=== PATIENT | female | born 1970 | race Two or more races ===

== ENCOUNTER 2024-03-27 20:36 | Emergency (ER) | payer SELFPAY ==
[2024-03-27 20:41] VITALS: BP 164/91
[2024-03-27 21:28] VITALS: BP 138/84
[2024-03-27 21:34] VITALS: BMI 28.7
[2024-03-27 21:50] LABS: % Eosinophils 7.5 % (0-6); % Immature Granulocytes 0.3 % (0-0.5); % Lymphocytes 28.5 % (20.5-51.1); % Monocytes 7.9 % (1.7-9.3); % Neutrophils 54.8 % (42.2-75.2); Absolute Basophils 0.1 10^3/uL (0-0.2); Absolute Eosinophils 0.9 10^3/uL (0-0.7); Absolute Lymphocytes 3.5 10^3/uL (1.2-3.4); Absolute Neutrophils 6.7 10^3/uL (1.4-6.5); Hematocrit 36.1 % (37.0-47.0); Hemoglobin 12.5 g/dL (12.0-16.0); Mean Corp Hgb Conc. 34.6 g/dL (33.0-37.0); Mean Corpuscular Hgb 30.5 pg (27.0-31.0); Mean Platelet Volume 12.8 fL (7.4-10.4); Nucleated Red Blood Cells % 0 %; Platelet Count 147 10^3/uL (130-400); Red Cell Dist. Width 12.7 % (11.5-14.5); White Blood Cell Count 12.2 10^3/uL (4.8-10.8)
[2024-03-27 21:58] LABS: COVID-19 Antigen Negative (Negative)
[2024-03-27 22:00] VITALS: BP 144/81
[2024-03-27 22:03] LABS: Urine Albumin Negative (Neg - Trace); Urine Bilirubin Negative (Negative); Urine Character Clear (Clear); Urine Color Yellow; Urine Glucose Negative (Negative); Urine Ketone Negative (Negative); Urine Leukocyte Trace (Negative); Urine Nitrite Negative (Negative); Urine Occult Blood Trace (Negative); Urine Specific Gravity 1.015 (<1.030); Urine Urobilinogen Negative (Neg - 1+)
--- NOTE | 2024-03-27 22:08 | ED.GENMED ---
History of Present Illness
<Pat Maldonado NP - Last Filed: 03/27/24 22:28>
General
Chief Complaint: Abdominal Symptoms
Source: patient
Exam Limitations: none
Time Seen by Provider: 03/27/24 21:02
Nursing documentation reviewed up to this point in time: agreed with
History of Present Illness
History of Present Illness:
Patient to ED with complaint of lower abd. pain. Symptoms started today. Denies fever/chills. Reports nausea and diarrhea. No vomiting. Denies any urinary symptoms. No prior history of same. Brought to eD by family for eval. ALso notes small
amt of drainage from umbilicus.
Past History
<Pat Maldonado NP - Last Filed: 03/27/24 22:28>
Past History
ED Past Medical History: Asthma and Psychiatric (Depression)
ED Past Surgical History: Appendectomy and
Social History
Tobacco: Non-smoker
Review of Systems
<Pat Maldonado NP - Last Filed: 03/27/24 22:28>
Review of Systems
Allergies reviewed?: Yes
All Other Systems: ROS reviewed and negative except as documented in HPI and ROS
Constitutional: Reports no symptoms
EENT: Reports no symptoms
Respiratory: Reports trouble breathing
Cardiac: Reports no symptoms
ABD/GI: Reports abdominal pain, nausea and diarrhea
: Reports no symptoms
Musculoskeletal: Reports no symptoms
Skin: Reports other (reports small amt of drainage from umbilicus)
Neurological: Reports no symptoms
Psychiatric: Reports no symptoms
Phy Exam
<Pat Maldonado NP - Last Filed: 03/27/24 22:28>
General Physical Exam
General Presentation: well appearing and mild distress
General age: appears stated age
General Skin: warm and dry
General Habitus: normal
General Mental: alert
Cardiovascular Exam
Cardiovascular Exam: regular rate/rhythm and no edema
Pulmonary Exam
Pulmonary Exam: lungs clear and no respiratory distress
Gastrointestinal Exam
Gastrointestinal Exam: normal bowel sounds, soft, no organomegaly, no pulsatile mass, non distended and no cva tenderness
Palpation: left upper quadrant: No tenderness, left lower quadrant: Moderate tenderness, right upper quadrant: No tenderness and right lower quadrant: Moderate tenderness
Musculoskeletal Exam
Musculoskeletal Exam: full ROM and neuro vasc intact
Skin Exam
Skin Exam: normal color, warm/dry and no rash
Psychiatric Exam
Psychiatric Exam: normal mood/affect
Course
<Pat Maldonado NP - Last Filed: 03/27/24 22:28>
Orders/Labs/Results
Orders:
Orders
03/27/24 20:47
Electrocardiogram (*1) Urgent
Reason for Study: Abdominal Pain
EKG- Treatment ONCE
IV Insert/Care/Rem.- Treatment PRN
03/27/24 20:59
Chest [CR Chest - 2 Views ] Urgent
Comment:
Reason For Exam: breathing issues
03/27/24 21:31
Basic Metabolic Panel Urgent
COVID-19 Antigen Urgent
Source: Nasal Swab
Comment: .
Complete Blood Count/With Diff Urgent
Lipase Urgent
03/27/24 21:54
Urinalysis Reflex To Culture Urgent
Date Specimen was Collected: 03/27/24
Time Specimen was Collected: 20:47
Urine Microscopic Reflex Cult Urgent
03/27/24 22:04
0.9% Sodium Chloride 1000 ml [Nss] 1,000 ml IV BOLUS
Ondansetron Injectable [Zofran] 4 mg IV NOW STA
03/27/24 22:05
Iohexol [Omnipaque] See Protocol PO NOW STA
03/28/24 00:30
CT Abd/pel W Iv And Oral Contr Urgent
Reason For Exam: lower abd. pain
03/28/24 01:36
Ketorolac [Toradol] 30 mg IV NOW STA
Abnormal Lab Results
03/27/24 03/27/24
21:31 21:54
WBC 12.2 H 10^3/uL
(4.8-10.8)
RBC 4.10 L 10^6/uL
(4.20-5.40)
Hct 36.1 L %
(37.0-47.0)
MPV 12.8 H fL
(7.4-10.4)
Absolute Neuts (auto) 6.7 H 10^3/uL
(1.4-6.5)
Absolute Lymphs (auto) 3.5 H 10^3/uL
(1.2-3.4)
Absolute Monos (auto) 1.0 H 10^3/uL
(0.1-0.6)
Absolute Eos (auto) 0.9 H 10^3/uL
(0-0.7)
Eosinophils % 7.5 H %
(0-6)
BUN 18 H mg/dl
(7-17)
Glucose 100 H mg/dl
(70-99)
Ur Occult Blood Reflex Trace A
(Negative)
Leukocyte Esterase Rfl Trace A
(Negative)
Urine Bacteria (Reflex) Few A
(Negative)
03/27/24 21:31
03/27/24 21:31
Vital Signs
Initial and Last Documented VS:
Initial Vital Signs
Temp Pulse Resp BP Pulse Ox
99 F 88 20 164/91 100
03/27/24 20:41 03/27/24 20:41 03/27/24 20:41 03/27/24 20:41 03/27/24 20:41
Last Documented Vital Signs
Temp Pulse Resp BP Pulse Ox
99.0 F 80 18 140/89 99
03/27/24 21:28 03/28/24 01:04 03/28/24 01:04 03/28/24 01:04 03/28/24 01:04
<Gurdeep Salter, DO - Last Filed: 03/28/24 01:38>
Orders/Labs/Results
Orders:
Orders
03/27/24 20:47
Electrocardiogram (*1) Urgent
Reason for Study: Abdominal Pain
EKG- Treatment ONCE
IV Insert/Care/Rem.- Treatment PRN
03/27/24 20:59
Chest [CR Chest - 2 Views ] Urgent
Comment:
Reason For Exam: breathing issues
03/27/24 21:31
Basic Metabolic Panel Urgent
COVID-19 Antigen Urgent
Source: Nasal Swab
Comment: .
Complete Blood Count/With Diff Urgent
Lipase Urgent
03/27/24 21:54
Urinalysis Reflex To Culture Urgent
Date Specimen was Collected: 03/27/24
Time Specimen was Collected: 20:47
Urine Microscopic Reflex Cult Urgent
03/27/24 22:04
0.9% Sodium Chloride 1000 ml [Nss] 1,000 ml IV BOLUS
Ondansetron Injectable [Zofran] 4 mg IV NOW STA
03/27/24 22:05
Iohexol [Omnipaque] See Protocol PO NOW STA
03/28/24 00:30
CT Abd/pel W Iv And Oral Contr Urgent
Reason For Exam: lower abd. pain
03/28/24 01:36
Ketorolac [Toradol] 30 mg IV NOW STA
Abnormal Lab Results
03/27/24 03/27/24
21:31 21:54
WBC 12.2 H 10^3/uL
(4.8-10.8)
RBC 4.10 L 10^6/uL
(4.20-5.40)
Hct 36.1 L %
(37.0-47.0)
MPV 12.8 H fL
(7.4-10.4)
Absolute Neuts (auto) 6.7 H 10^3/uL
(1.4-6.5)
Absolute Lymphs (auto) 3.5 H 10^3/uL
(1.2-3.4)
Absolute Monos (auto) 1.0 H 10^3/uL
(0.1-0.6)
Absolute Eos (auto) 0.9 H 10^3/uL
(0-0.7)
Eosinophils % 7.5 H %
(0-6)
BUN 18 H mg/dl
(7-17)
Glucose 100 H mg/dl
(70-99)
Ur Occult Blood Reflex Trace A
(Negative)
Leukocyte Esterase Rfl Trace A
(Negative)
Urine Bacteria (Reflex) Few A
(Negative)
03/27/24 21:31
03/27/24 21:31
Vital Signs
Initial and Last Documented VS:
Initial Vital Signs
Temp Pulse Resp BP Pulse Ox
99 F 88 20 164/91 100
03/27/24 20:41 03/27/24 20:41 03/27/24 20:41 03/27/24 20:41 03/27/24 20:41
Last Documented Vital Signs
Temp Pulse Resp BP Pulse Ox
99.0 F 80 18 140/89 99
03/27/24 21:28 03/28/24 01:04 03/28/24 01:04 03/28/24 01:04 03/28/24 01:04
<Gurdeep Salter, DO - Last Filed: 03/28/24 01:38>
*Critical Care Note
Total Time (30-74mins, 75-104mins- exclusive of procedures): Not Applicable
ED Attending Note
<Pat Maldonado NP - Last Filed: 03/27/24 22:28>
-
Portions of this chart may have been created with voice recognition software.� Occasional wrong word or��sound alike� substitutions may have occurred due to the inherent limitations of voice recognition software.
<Gurdeep Salter DO - Last Filed: 03/28/24 01:38>
ED Attending Note
Patient seen and examined by attending physician: Yes
I performed the substantive portion of visit, reviewed & personally made and approve the management plan that is documented in note by myself or GRACIELA.: Yes
ED Attending Note:
Seen with [facility] COACH examined independently labs noted CAT scan noted patient appears comfortable her abdomen is soft and nontender I am unable to see any drainage from umbilicus
Discharge Plan
Departure
Patient Disposition: Home (Routine Discharge)
Date of Disposition: 03/28/24
Time of Disposition: 01:37
Patient with high blood pressure during this ER visit?: No
Condition: Good
Discharge Problem:
Nausea vomiting and diarrhea
Instructions: Nausea and Vomiting, Adult (DC)
Prescriptions:
New
dicyclomine 20 mg tablet
20 mg PO QID PRN (Reason: abdominal pain) Qty: 20 0RF
ondansetron 4 mg tablet,disintegrating
4 mg PO Q8H PRN (Reason: nausea and vomiting) Qty: 10 0RF
No Action
ondansetron [Zofran ODT] 8 MG tablet,disintegrating
8 mg PO TIDPRN PRN (Reason: vomiting) Qty: 15 0RF
lansoprazole [Prevacid] 30 MG capsule,delayed release(DR/EC)
30 mg PO HS Qty: 30 0RF
lorazepam 0.5 MG tablet
0.5 mg PO Q4HPRN PRN (Reason: anxiety) Qty: 30 0RF
escitalopram oxalate 10 MG tablet
10 mg PO DAILY Qty: 60 0RF
hydroxyzine pamoate [Vistaril] 25 MG capsule
25 mg PO BID PRN (Reason: anxiety) Qty: 20 0RF
Referrals:
Malini Lebron MD [Family Provider] -
Interventions
Interventions:
*Risk Screen - Suicide Last Done: 03/27/24 20:41
*General Assessment Last Done: 03/27/24 20:41
*Neglect/Abuse Screening Last Done: 03/27/24 20:41
ED- Fall Risk Assessment Last Done: 03/27/24 20:41
*ED COVID-19 Vaccine History Last Done: 03/27/24 20:41
CG-Npgwjp-Vessrnxcxf Assessment Last Done: 03/27/24 21:36
ED- Cardiac Assessment Last Done: 03/27/24 21:36
ED- Pulmonary Assessment Last Done: 03/27/24 21:36
Discharge Date and Time
Print Language: DOMINICAN
[2024-03-27 22:12] LABS: Urine Bacteria Few (Negative); Urine Red Blood Cell 0-2 /HPF (0-2); Urine Squamous Cell 0-2 /LPF (Few); Urine White Cell 0-2 /HPF (0-5)
[2024-03-27 22:12] LABS: Blood Urea Nitrogen 18 mg/dl (7-17); Estimated Creatinine Clearance 78 ml/min; Glucose 100 mg/dl (70-99); Sodium 142 mmol/L (135-145); eGFR > 60.00
[2024-03-27 22:13] LABS: Calcium 9.6 mg/dl (8.4-10.2); Carbon Dioxide 24 mmol/L (22-30); Chloride 107 mmol/L (98-107); Lipase 193 U/L (23-300)
[2024-03-27] MEDS: NSS 1000 IV (22:21)
[2024-03-27] MEDS: ZOFRAN 4 MG IV (22:21)
[2024-03-27] MEDS: OMNIPAQUE 50 ML PO (22:22)
[2024-03-27 23:00] VITALS: BP 116/70
[2024-03-28 01:04] VITALS: BP 140/89
[2024-03-28] MEDS: TORADOL 30 MG IV (01:42)
== END 2024-03-28 01:53 | disposition home or self-care (01) ==
LOC: EMR 20:36
PROVIDERS: Emergency Medicine; EMERGENCY PHYSICIAN Emergency Medicine; FAMILY PHYSICIAN Family Medicine
DX: R19.7 Diarrhea, unspecified (principal); R11.2 Nausea with vomiting, unspecified; R10.30 Lower abdominal pain, unspecified; R06.00 Dyspnea, unspecified; Z11.52 Encounter for screening for COVID-19; F32.A Depression, unspecified; J45.909 Unspecified asthma, uncomplicated; I10 Essential (primary) hypertension; F41.9 Anxiety disorder, unspecified; Z88.0 Allergy status to penicillin
CPT/HCPCS: 99285; 96374; 96375; 96361; 71046; 74177; 80048; 81003; 81015; 83690; 85025; 87811; 93005; Q9967

== ENCOUNTER 2025-01-12 12:24 | Inpatient (IN) | payer OTHER, SELFPAY ==
[2025-01-08] VITALS (10 sets, daily range): BP systolic 118–160; BP diastolic 60–116
--- NOTE | 2025-01-08 07:12 | ED.CVA ---
History of Present Illness
General
Chief Complaint: CVA/TIA Symptoms
Source: patient
Exam Limitations: none
Time Seen by Provider: 01/08/25 07:08
Nursing documentation reviewed up to this point in time: agreed with
Onset of Stroke Symptoms
Onset of symptoms known: No
Date of onset of symptoms: 01/08/25
Time of onset of symptoms: 06:00
Time pt last seen normal is known: Yes
Date last time pt seen normal: 01/07/25
Time last time pt seen normal: 22:30
History of Present Illness
History of Present Illness:
Patient without significant past medical history, presents to ED after waking up this morning around 6 AM secondary to fall getting out of bed due to weakness. Patient went to sleep around 10:30 PM, per family, without any difficulty. Upon medics
arrival, patient was found to have right upper extremity and right lower extremity weakness along with altered speech pattern. Patient unable to provide any further information. There is no history of previous similar episodes. Patient does not
have any significant medical history. Upon arrival, patient is found to have aforementioned weakness along with soft, slow speech pattern, unable to recognize. Prehospital stroke alert activated.
Past History
Past History
ED Past Medical History: Asthma and Psychiatric (Depression)
ED Past Surgical History: Appendectomy and
Social History
Tobacco: Non-smoker
Review of Systems
Review of Systems
Allergies reviewed?: Yes
Unable to obtain full review of systems at this time due to: due to acuity
All Other Systems: Not applicable
Phy Exam
Physical Exam
Physical Exam:
Physical Exam
General: mild distress, acutely ill. afebrile
Head: nc/at. eomi
Neck: supple. normal range of motion.
Heart: s1/s2 regular rate and rhythm
Lungs: no acute respiratory distress. clear bilaterally
Abdomen: normal bowel sounds. not tender.
Neuro: alert and oriented x 3. soft, slow speech noted. no facial droop. RUE/RLE (motor) : 07/30
Skin: no rash
Extremities: no edema. no calf tenderness.
Course
Orders/Labs/Results
Orders:
Orders
01/08/25 Breakfast
NPO
Allow oral meds: No
Allow clear liquids: No
01/08/25 07:[address]
CT BRAIN PERF STROKE ALERT Urgent
Comment:
Reason For Exam: RUE/RLE weakness with altered speech
CT HEAD STROKE ALERT W/o Cont Urgent
Comment:
Reason For Exam: RUE/RLE weakness with altered speech
CT HEAD/NECK ANG STROKE ALERT Urgent
Comment:
Reason For Exam: RUE/RLE weakness with altered speech
Cardiac Monitoring- Treatment ONCE
01/08/25 07:09
Electrocardiogram (*1) Stat
Reason for Study: Other
Other Reason for Exam: neuro symptoms
EKG- Treatment ONCE
01/08/25 07:13
NEUROLOGY CONSULT Urgent
Consulting Provider: Mary Henning
Was physician already notified: Yes
Reason for consult: RUE/RLE weakness
01/08/25 07:38
Complete Blood Count/No Diff Urgent
01/08/25 08:43
Comprehensive Metabolic Panel Urgent
PTT Urgent
Prothrombin Time Urgent
Troponin I Urgent
01/08/25 09:38
Aspirin 325 mg PO NOW STA
Clopidogrel Bisulfate [Plavix] 300 mg PO NOW STA
01/08/25 09:49
Diphenhydramine [Benadryl] 25 mg IV NOW STA
Ketorolac [Toradol] 15 mg IV NOW STA
Metoclopramide [Reglan] 10 mg IV NOW STA
01/08/25 Lunch
Cholesterol Lowering
Cholesterol Lowering: Sodium, 2 Gram
Aspirin 300 mg RECTAL NOW STA
01/08/25 10:01
Ondansetron Injectable [Zofran] 4 mg IV NOW STA
01/08/25 10:35
MR Brain Without Contrast Routine
Comment:
Reason For Exam: stroke
OK for patient to be off Cardiac Monitoring for MRI: No
Recent pill cam endoscopy?: No
01/08/25 10:37
Echo 2D MMode Color/Doppler Routine
Reason for Study: Thrombotic source for stroke-like sxs
01/08/25 10:49
CRP [C-Reactive Protein] Routine
D-Dimer Routine
ESR [Erythrocyte Sed Rate] Routine
Hemoglobin A1c [Glycohemoglobin (HgbA1c)] Routine
Lipid Profile [Cardiovascular Evaluation] Routine
Lyme Progressive Routine
Magnesium Routine
01/08/25 10:59
Speech screening from Nursing [Speech Screening from [place]] Routine
01/08/25 11:26
Add On- LAB Urgent
Tests Added?: D-Dimer
01/08/25 12:25
Admit/Transfer Patient As Directed
Co-Sign Provider:
Level of Care: Observation services
Assign to:: Telemetry
Physician / Group: Bernie Muir - [facility]
Diagnosis: possible acute CVA
Reason for Telemetry: CVA/TIA
Date to Stop Telemetry: 01/11/25
Time to Stop Telemetry: 11:00
Reason for Hospitalization: possible acute CVA
PRN Pain Medication Management As Directed
May give lesser potent ordered pain med per pt: Yes
preference::
Protocol:: Medication orders for pain may be administered in a
manner that supports deferring to patient preference
when the pt is:
- Requesting an ordered lesser potent pain medication.
Least to most potent pain medications are defined
as: acetaminophen < NSAID < tramadol < opioids
(morphine, oxycodone, hydromorphone).
- Requesting a lesser dose of the same medication IF
ORDERED.
- Requesting a less intrusive route of administration
if both routes are prescribed by the provider (PO <
IV).
01/08/25 12:27
Code Status As Directed
Resuscitation Status: Full Code
01/08/25 14:17
Acetaminophen [Tylenol] 650 mg PO Q4HPRN PRN
Bisacodyl [Dulcolax] 10 mg RECTAL [id number] PRN
Bisacodyl [Dulcolax] 10 mg RECTAL [id number] PRN
Diphenhydramine [Benadryl] 25 mg IV Q6HPRN PRN
Docusate W/Senna [Senokot-S] 1 tablet PO BIDPRN PRN
Docusate W/Senna [Senokot-S] 1 tablet PO BIDPRN PRN
Ketorolac [Toradol] 15 mg IV Q6HPRN PRN
Ondansetron Injectable [Zofran] 4 mg IV Q6HPRN PRN
Polyethylene Glycol Powder [Miralax] 17 grams PO DAILYPRN PRN
Polyethylene Glycol Powder [Miralax] 17 grams PO DAILYPRN PRN
01/08/25 14:17
NEUROLOGY CONSULT Routine
Consulting Provider: Mary Henning
Was physician already notified: Yes
Urine Drug Abuse Screen Routine
Activity As Directed
Activity Level: As Tolerated
Neurological Checks As Directed
Frequency: q4h
Vital Signs As Directed
Frequency: Per unit guidelines
Ot Eval And Treat Routine
Pt Eval And Treat Routine
Activity Level: As Tolerated
Speech Therapy Eval & Treat Routine
DX Deep Vein Thrombosis Video Routine
01/08/25 18:00
Atorvastatin [Lipitor] 40 mg PO QPM
Enoxaparin Sodium [Lovenox] 40 mg SC QPM
01/09/25 06:00
Basic Metabolic Panel IN AM
Complete Blood Count/No Diff IN AM
01/09/25 08:00
Aspirin Chewable [Low Strength Aspirin] 81 mg PO DAILY
01/11/25 11:00
DC Protocol for Telemetry ONCE
Abnormal Lab Results
01/08/25 01/08/25 01/08/25
07:38 08:43 10:49
MPV 12.1 H fL
(7.4-10.4)
Chloride 113 H mmol/L
(98-107)
Glucose 102 H mg/dl
(70-99)
Total Cholesterol 239 H mg/dl
(50-199)
01/08/25 07:38
01/08/25 08:43
Vital Signs
Initial and Last Documented VS:
Initial Vital Signs
Temp Pulse Resp BP
98.2 F 94 16 150/60
01/08/25 07:28 01/08/25 07:28 01/08/25 07:28 01/08/25 07:28
Last Documented Vital Signs
Temp Pulse Resp BP Pulse Ox
98.1 F 67 14 148/85 96
01/08/25 19:57 01/08/25 19:57 01/08/25 19:57 01/08/25 19:57 01/08/25 19:57
Procedures
Central Line
Right Femoral:
Indication for procedure:: Unable to obtain peripheral IV access for potential therapeutic interventio
Procedure completed by: Niko Dye M.D.
If no, reason: Emergency procedure (Verbal consent obtained at bedside, in the presence of nursing staff and family members)
Anesthesia: 1% Lidocaine
Central line lumen: triple
Number of attempts: 1
Central line complications: none
Sterile dressing applied?: Yes
X-ray: other (Normal blood return)
MDM/Problems Addressed
MDM/Problems Addressed:
Prehospital stroke alert activated. On-call neurologist, Dr. Henning, notified via [place] text.
History and exam concerning for likely wake-up CVA, with last well-known time at 10:30 PM when she laid down to sleep. Initial CT head without any acute findings.
Unfortunately, CTA/CTP unable to be obtained initially, secondary to inability to obtain peripheral IV access after multiple attempts, including midline placement by IV team. As such, patient brought back to her room and had discussion with patient
and family regarding placement of emergent femoral central line to obtain further studies. Unfortunately, initially, there was much disagreement and refusal to provide permission to obtain central line. After multiple discussions with patient and
family, patient finally relented and agreed to allow placement of central line. Verbal consent obtained with multiple nursing staff and family at bedside.
Femoral central line placement successful after 1 attempt. Patient will be transferred back to CT for CTP/CTA studies now.
Discussed CT PE/CTA results with on-call neurologist, . Patient is not a candidate for tenecteplase at this time. Recommend starting patient on aspirin Plavix load with 300 mg. Patient will be admitted for further evaluation and
treatment.
Critical care statement: A total of 40 minutes of critical care time was provided for this patient. This includes management of unstable vital signs, evaluation of the patient at bedside, reviewing the patient's pertinent medical records, discussion
with consultants, review of old EKGs and review of pertinent medical records. This time with separate from time utilized to perform the aforementioned documented procedures
*Pulse Oximetry
Patient hypoxic: no (100%)
*EKG
Interpreted by ED Provider?: Yes
EKG Intrepretation Date: 01/08/25
Heart Rate: 77
Rate: normal
Rhythm: sinus
[place]: normal axis
Interval: normal interval
*Critical Care Note
Total Time (30-74mins, 75-104mins- exclusive of procedures): 40 min
ED Attending Note
-
Portions of this chart may have been created with voice recognition software.� Occasional wrong word or��sound alike� substitutions may have occurred due to the inherent limitations of voice recognition software.
Discharge Plan
Departure
Patient Disposition: Admit
Date of Disposition: 01/08/25
Time of Disposition: 09:42
Admit to: Telemetry
Presentation/result/management discussed w/ accepting MD/DO: Hospitalist
Discharge Problem:
Acute CVA (cerebrovascular accident)
Interventions
Interventions:
*Risk Screen - Suicide Last Done: 01/08/25 07:28
*General Assessment Last Done: 01/08/25 07:28
*Neglect/Abuse Screening Last Done: 01/08/25 08:50
*ED COVID-19 Vaccine History Last Done: 01/08/25 14:45
*Nursing Disposition Last Done: 01/08/25 14:10
ED- Pulmonary Assessment Last Done: 01/08/25 07:47
ED- Neurological Assessment Last Done: 01/08/25 11:01
ED- Cardiac Assessment Last Done: 01/08/25 07:47
ED Swallowing Screen Last Done: 01/08/25 08:50
Discharge Date and Time
Discharge Date/Time: 01/08/25 14:11
[2025-01-08 07:51] LABS: Hematocrit 43.1 % (37.0-47.0); Hemoglobin 14.6 g/dL (12.0-16.0); Mean Corp Hgb Conc. 33.9 g/dL (33.0-37.0); Mean Corpuscular Hgb 30.4 pg (27.0-31.0); Mean Corpuscular Volume 89.6 fL (81.0-99.0); Mean Platelet Volume 12.1 fL (7.4-10.4); Platelet Count 141 10^3/uL (130-400); Red Blood Cell Count 4.81 10^6/uL (4.20-5.40); Red Cell Dist. Width 12.9 % (11.5-14.5); White Blood Cell Count 9.7 10^3/uL (4.8-10.8)
--- NOTE | 2025-01-08 08:22 | VATNOTE ---
Pt required to have [address] study. 18 G was attempted in L AC area by this RN, unable to thread the catheter. U/S guided 18 was placed in R AC by physician. While pt was on the table the IV infiltrated and was unable to be used for study.
L midline was placed without difficulty and with a blood return. Dressing placed but when signals collection technician went to flush midline no blood return was appreciated. This VAT RN manipulated pt's arm and midline itself, but no blood return. Upon D/C catheter was
possibly curling upon insertion. Decision was made to remove midline and place central line. Will continue to monitor.
[2025-01-08 09:06] LABS: INR 1.05
[2025-01-08 09:07] LABS: APTT 28.5 Sec (23.4-35.0)
[2025-01-08 09:27] LABS: ALT (SGPT) 15 U/L (0-35); AST (SGOT) 19 U/L (14-36); Albumin 4.3 g/dl (3.5-5.0); Alkaline Phosphatase 72 U/L (38-126); Blood Urea Nitrogen 12 mg/dl (7-17); Calcium 9.4 mg/dl (8.4-10.2); Carbon Dioxide 22 mmol/L (22-30); Chloride 113 mmol/L (98-107); Estimated Creatinine Clearance 79 ml/min; Glucose 102 mg/dl (70-99); Potassium 4.4 mmol/L (3.5-5.1); Sodium 143 mmol/L (135-145); Total Protein 6.8 g/dl (6.3-8.2); eGFR > 60.00
[2025-01-08 09:32] LABS: Troponin I < 0.012 ng/ml
[2025-01-08] MEDS: BENADRYL 25 MG IV ×2 (10:05→21:14)
[2025-01-08] MEDS: REGLAN 10 MG IV (10:05)
[2025-01-08] MEDS: TORADOL 15 MG IV ×2 (10:05→19:46)
[2025-01-08] MEDS: ZOFRAN 4 MG IV (10:06)
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
[2025-01-08 11:33] LABS: HDL Cholesterol 59 mg/dl; LDL Cholesterol, Calculated 159 mg/dl; Total Cholesterol 239 mg/dl (50-199); Triglyceride 108 mg/dl (10-149); Very Low Density Lipoprotein 21 mg/dl (0-30)
[2025-01-08 11:35] LABS: C-Reactive Protein < 5.00 mg/L (0.0-10.00)
[2025-01-08 11:58] LABS: D-Dimer 0.38 ug/mlFEU (0.00-0.50)
--- NOTE | 2025-01-08 12:08 | HPS.HSE ---
Family Physician
-
Family Physician: Priscilla Mullen NP
Chief Complaint
-
Stroke like symptoms
History of Present Illness
54 y/o M, hx of HTN, HLD, MDD/PTSD presents to ER with headache, fall and weakness/numbness of right side. She reports initially headache started Wednesday, increase in intensity to 7/10. She went to sleep last evening at 1030 pm in her usual state
of health. this morning at 5 AM, she woke up with sudden onset Right leg numbness and weakness, which progressed to RUE numbness/weakness. She suffered a fall. No prior episodes. No other complaints. In ER, emergent stroke alert did not reveal
evidence of CVA. Patient admitted for further evaluation.
Medical History
Past Medical History
Past Medical History: Reports Other (hx of HTN, HLD, MDD/PTSD)
Past Surgical History: Reports Other (, appendectomy, Breast biopsy )
Social History
Tobacco: Non-smoker
Alcohol: None
Drug: None
Personal:
Living: With Family
Employment: Employed
Family History
Family History: Not pertinent
Allergies / Home Medications
Allergies reflects when Allergies were last updated in [employer].
Home Medications with original date entered in [employer]
Allergy/Medication List:
Allergies
Allergy/AdvReac Type Severity Reaction Status Date / Time
Penicillins Allergy Nausea / Verified 03/27/24 20:41
Vomiting
Home Medications
acetaminophen 500 mg tablet 1,000 mg PO Q6HPRN PRN mild pain 01/08/25
Review of Systems
-
A 12 point ROS was completed and negative except as noted: Yes
Physical Exam
Vital Signs
Vital Signs
Temp Pulse Resp BP Pulse Ox
98.2 F 86 23 118/72 99
01/08/25 07:28 01/08/25 11:00 01/08/25 11:00 01/08/25 11:00 01/08/25 10:15
Physical Exam
General: No Apparent Distress
HEENT: NormoCephalic and Anicteric
Respiratory: Clear; No Wheezes
Cardiac: S1/S2 and Regular Rhythm
GI: Soft and Non Tender
Neuro: AO x 3 and Other (Right pronator drift (pain limited exam). Bilateral leg drift (right >left))
Psych: Calm
Laboratory Results
-
01/08/25 07:38
01/08/25 08:43
Laboratory Results
PT 14.0 Sec (11.4-14.6) 01/08/25 08:43
INR 1.05 01/08/25 08:43
APTT 28.5 Sec (23.4-35.0) 01/08/25 08:43
Total Bilirubin 1.0 mg/dl (0.2-1.3) 01/08/25 08:43
AST 19 U/L (14-36) 01/08/25 08:43
ALT 15 U/L (0-35) 01/08/25 08:43
Alkaline Phosphatase 72 U/L (38-126) 01/08/25 08:43
Troponin I < 0.012 ng/ml 01/08/25 08:43
Data Reviewed
-
Lab Data: Labs Reviewed by me
Impression/Plan
-
Assessment:
Left lacunar syndrome with hemiparesis/sensory deficits
- Ddx: CVA vs HTN related vs migraine related vs psychosomatic etiology
- CTH/CTA/CTP negative in ER. MRI pending.
- Echo pending
- Neurology consulted; start ASA/Plavix/Statin
- Lipids/A1c/Tox screen/ESR/CRP
- headache control prn Reglan/Benadryl
- Psych evaluation if workup negative
- PT/OT/ST evals
Essential HTN
- may need BP agent if BP>140/90
HLD
- Lipitor
MDD/PTSD
DVT ppx: Lovenox
Code: Full
[2025-01-08 13:40] LABS: Erythrocyte Sed Rate 9 mm/hour (0-20)
[2025-01-08 14:02] LABS: Glycohemoglobin (HgbA1c) 5.4 % (4.0-5.6)
--- NOTE | 2025-01-08 16:06 | PTOTSP ---
Dysphagia Evaluation
Patient/family reported signs concerning for unspecified pharyngeal and/or esophageal dysphagia (i.e., 'coughing/choking' at onset of meals for several months prior to admission, need for pats to back). Patient currently presents with significant
odynophagia with limited trials of thin liquids via straw, c/o stasis resolved w/ time, but no overt s/s of aspiration.
Etiology of dysphagia is unknown. Notified neurologist of recent dysphagia reports. Acute dysphagia risk factors include current reports of decreased sensation on right side of face with MRI of Brain pending to r/o CVA.
Recommend:
1. NPO
2. Medications: non-oral
3. Oral care 3x daily
4. Aspiration Risk Hydration Protocol - unlimited SINGLE sips of thin liquid water
5. Dysphagia therapy for re-evaluation of swallowing and to determine if/when instrumental swallowing assessment warranted
[2025-01-08] MEDS: PROTONIX IV 40 MG IV (16:07)
[2025-01-08] MEDS: NSS 1000 IV (16:07)
[2025-01-08] MEDS: NSS (PRESERVATIVE FREE) 10 ML IV (16:07)
--- NOTE | 2025-01-08 16:37 | VATNOTE ---
Spoke with MD about pt's peripheral access, pt has residual weakness in her RUE so limb restriction bracelet applied. New PIV established in L arm and R hand IV discontinued. Clarifying with MD if we can DC femoral line with current access.
--- NOTE | 2025-01-08 16:41 | VATNOTE ---
Per , OK to remove femoral line with current PIV access.
[2025-01-08] MEDS: LOVENOX 40 MG SC (17:08)
[2025-01-08] MEDS: LIPITOR PO (17:08)
[2025-01-08 21:23] LABS: Glucose - Point of Care 85 mg/dl (70-99)
[2025-01-08 21:40] LABS: Amphetamines Negative (Negative); Barbiturates Negative (Negative); Benzodiazepines Negative (Negative); Buprenorphine Negative (Negative); Cocaine Negative (Negative); Marijuana Negative (Negative); Methadone Negative (Negative); Methamphetamines Negative (Negative); Opiates Negative (Negative); Phencyclidine Negative (Negative); Tricyclic Antidepressants Negative (Negative)
[2025-01-09] VITALS (8 sets, daily range): BP systolic 117–151; BP diastolic 60–83; PULSE 77; O2SAT 100
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
[2025-01-09] MEDS: LOW STRENGTH ASPIRIN PO (07:59)
[2025-01-09] MEDS: PROTONIX IV 40 MG IV (08:00)
[2025-01-09] MEDS: NSS (PRESERVATIVE FREE) 10 ML IV (08:00)
[2025-01-09 08:01] LABS: Hematocrit 36.9 % (37.0-47.0); Hemoglobin 12.5 g/dL (12.0-16.0); Mean Corp Hgb Conc. 33.9 g/dL (33.0-37.0); Mean Corpuscular Hgb 30.4 pg (27.0-31.0); Mean Corpuscular Volume 89.8 fL (81.0-99.0); Mean Platelet Volume 12.2 fL (7.4-10.4); Platelet Count 145 10^3/uL (130-400); Red Blood Cell Count 4.11 10^6/uL (4.20-5.40); Red Cell Dist. Width 13.1 % (11.5-14.5); White Blood Cell Count 7.3 10^3/uL (4.8-10.8)
[2025-01-09] MEDS: TORADOL 15 MG IV (08:07)
--- NOTE | 2025-01-09 08:10 | VATNOTE ---
During routine assessment, dressing where R femoral line was removed visualized. Dressing is clean, dry, and intact. Pt describes a 'litte soreness' at the site.
[2025-01-09 08:20] LABS: Blood Urea Nitrogen 13 mg/dl (7-17); Carbon Dioxide 22 mmol/L (22-30); Chloride 115 mmol/L (98-107); Estimated Creatinine Clearance 70 ml/min; Glucose 81 mg/dl (70-99); Potassium 4.2 mmol/L (3.5-5.1); Sodium 143 mmol/L (135-145); eGFR > 60.00
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
--- NOTE | 2025-01-09 13:48 | W.PN.HOSP.TC ---
Today's Communication/Plan
-
acute rehab eval
Assessment / Plan
Assessment / Plan
Assessment:
Left lacunar syndrome with hemiparesis/sensory deficits
- CTH/CTA/CTP negative in ER. MRI negative. Echo unremarkable
- await CT C spine
- OP NCS/EMG if symptoms persist
- probably component of conversion disorder (functional neurological symptom disorder); reviewed with psychiatry
- continue ASA/Statin
- headache control prn Reglan/Benadryl
- PT/OT - acute rehab recommended. consult placed.
R elbow pain
- Xray ordered
Lumbar back pain
- Xray ordered
Essential HTN
- may need BP agent if BP>140/90
HLD
- Lipitor
MDD/PTSD
DVT ppx: Lovenox
Code: Full
Anticipated Discharge: > 48 hours
Subjective/Interval History
-
Date of Service: January 09, 2025
moving RUE and RLE slightly better than yesterday, still remains weak
tearful over psychosocial stressors
Objective Data
-
Labs:
Laboratory Results
01/09/25
07:17
WBC 7.3
Hgb 12.5
Hct 36.9 L
Plt Count 145
Sodium 143
Potassium 4.2
Chloride 115 H
Carbon Dioxide 22
BUN 13
Creatinine 0.9
Glucose 81
Calcium 9.0
Vital Signs:
Vital Signs
Temp Pulse Resp BP Pulse Ox
98.5 F 63 12 127/72 97
01/09/25 11:05 01/09/25 11:05 01/09/25 11:05 01/09/25 11:05 01/09/25 11:05
I&O
0601/09/25 01/10/25
06:59 06:59 06:59
Intake Total 800 / 800
Output Total 400 / 400
Balance 400 / 400
Physical Exam
-
General: No Apparent Distress
HEENT: Normocephalic and Atraumatic
Respiratory: Negative Wheezes
Cardiac: Regular Rhythm and S1/S2
GI: Soft and Nontender
Musculoskeletal: No Edema
Neuro: AO x 3 and Other (Right pronator drift (pain limited exam). Bilateral leg drift (right >left). Left arm and leg-antigravity)
Psych: Calm
Data Reviewed
-
Total Time Spent with Patient (in minutes): 42
Labs: Labs Reviewed by me
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
[2025-01-09] MEDS: LOVENOX 40 MG SC (17:22)
[2025-01-09] MEDS: LIPITOR 40 MG PO (17:22)
[2025-01-09] MEDS: BENADRYL 25 MG IV (21:56)
[2025-01-10] VITALS (8 sets, daily range): BP systolic 131–178; BP diastolic 60–99; PULSE 75–77; O2SAT 99
--- NOTE | 2025-01-10 04:48 | DOWNTIME ---
Addendum entered by Rudy Panda RN 01/10/25 14:11:
Correction to downtime 01/10/2025 from 0100 to 01/10/25 at 0415.
Original Note:
There was a [employer] Downtime on 01/09/2025 from 0100 to 01/10/2025 at 0415. Downtime documentation of patient's care, including medication administrations, has been reconciled in the electronic record per guidelines. Refer to the
patient's paper chart under the miscellaneous tab to see printed paper medication records and downtime forms.
[2025-01-10 06:34] LABS: Blood Urea Nitrogen 16 mg/dl (7-17); Calcium 9.2 mg/dl (8.4-10.2); Carbon Dioxide 24 mmol/L (22-30); Chloride 113 mmol/L (98-107); Estimated Creatinine Clearance 70 ml/min; Glucose 92 mg/dl (70-99); Potassium 4.4 mmol/L (3.5-5.1); Sodium 142 mmol/L (135-145); eGFR > 60.00
[2025-01-10] MEDS: LOW STRENGTH ASPIRIN 81 MG PO (08:22)
[2025-01-10] MEDS: NSS (PRESERVATIVE FREE) 10 ML IV (08:23)
[2025-01-10] MEDS: PROTONIX IV 40 MG IV (08:24)
[2025-01-10] MEDS: TORADOL 15 MG IV (11:08)
--- NOTE | 2025-01-10 12:08 | W.PN.HOSP.TC ---
Today's Communication/Plan
-
Neurosx eval
PT/OT/PMR evals
Assessment / Plan
Assessment / Plan
Assessment:
Left lacunar syndrome with hemiparesis/sensory deficits
- CTH/CTA/CTP negative in ER. MRI negative. Echo unremarkable
- CT C spine results as below
- OP NCS/EMG if symptoms persist
- probably component of conversion disorder (functional neurological symptom disorder); reviewed with psychiatry
- continue ASA/Statin
- headache control prn Reglan/Benadryl
- PT/OT - acute rehab recommended. consult placed.
Neck pain
- CT as below:
- SEVERE RIGHT-SIDED FACET JOINT ARTHROSIS at C3/C4 causing severe right neural foraminal narrowing and exiting right C4 nerve root impingement.
- SEVERE DISCOGENIC DEGENERATIVE DISEASE at C6/C7 with a moderate to large central disc-osteophyte complex causing mild to moderate spinal cord compression and central canal stenosis. Moderate to severe bilateral neural foraminal narrowing at C6/C7.
- Moderate to severe discogenic degenerative disease at C5/C6 with a disc-osteophyte complex causing mild spinal cord compression, mild central canal stenosis, and moderate to severe right neural foraminal narrowing.
- Mild spinal cord compression and central canal stenosis at C3/C4 and C4/C5.
- Neurosurg evaluation requested
R elbow pain
- Xray: Acute soft tissue contusion in the posterior right elbow overlying the proximal ulna.
Lumbar back pain
- Xray: Moderate discogenic degenerative disease at L4/L5 and L5/S1. Moderate to severe bilateral facet joint arthrosis at L4/L5 and L5/S1
Essential HTN
- may need BP agent if BP>140/90
HLD
- Lipitor
MDD/PTSD
DVT ppx: Lovenox
Code: Full
Anticipated Discharge: > 48 hours
Subjective/Interval History
-
Date of Service: January 10, 2025
resting comfortably, family at bedside
Objective Data
-
Labs:
Laboratory Results
01/10/25
05:49
WBC Pending
Hgb Pending
Hct Pending
Plt Count Pending
Sodium 142
Potassium 4.4
Chloride 113 H
Carbon Dioxide 24
BUN 16
Creatinine 0.9
Glucose 92
Calcium 9.2
Vital Signs:
Vital Signs
Temp Pulse Resp BP Pulse Ox
98.3 F 68 17 137/74 100
01/10/25 11:04 01/10/25 11:04 01/10/25 11:04 01/10/25 11:04 01/10/25 11:04
I&O
01/09/25 01/10/25 01/11/25
06:59 06:59 06:59
Intake Total 800 / 800 500 / 500
Output Total 400 / 400
Balance 400 / 400 500 / 500
Physical Exam
-
General: No Apparent Distress
HEENT: Normocephalic and Atraumatic
Respiratory: Negative Wheezes
Cardiac: Regular Rhythm and S1/S2
GI: Soft and Nontender
Musculoskeletal: No Edema
Neuro: AO x 3
Psych: Calm
Data Reviewed
-
Total Time Spent with Patient (in minutes): 41
Labs: Labs Reviewed by me
--- NOTE | 2025-01-10 13:29 | W.PN.UPDATE ---
Update Note
Progress Note Update
patient seen chart reviewed. discussed with nursing and dr dan. noted results of spine imaging. frankly i am surpised patient is not in more pain given the level of musculoskeletal disease in her back. the patient was very forthcoming about her
psychic pain. she lives in a very traditional household where the woman is subservient to her and it seems to just about everyone else. she is feeling particulary burdened with her d's inlaws in the home and she is expected to do it all
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 as well the rules have changed for her in her own interaction with her kids...whereas in the past when and where she was raised what parent said was the law...but not at this point where she feels she always has to walk
on eggshells around her own kids. she was at 15 and had her first child at 16. financially she sees herself as dependent upon her and that has been a most unhappy arrangement. she does not see any of their possessions as hers 'i live
in his house.' her sisters and her mother are her supports. i encouraged her to talk and gently challenged some of her assumptions. she is obviously a very capable woman who could have options if she would allow herself. she said she would be
willing to consider medication but maintains what she tried caused si. she said it was prescribed by [facility] but i got someone to review the f record and there was no record of meds prescribed just a note that she had taken meds prescribed
elsewhere and could not recall what she had taken. will discuss w her tomorrow.
--- NOTE | 2025-01-10 14:17 | CM ---
Addendum entered by Carey Gupta 01/12/25 10:44:
Patient has been accepted for transfer to [facility] for today. Clinical request for transfer sent via fax to [facility] [phone].
[facility] [place]
Accepting physician: Dr. Patel
Addendum entered by Carey Gupta 01/11/25 10:23:
[facility] is offering a bed for SNF if pt is agreeable to admission there. All other facilities are out of network with pt's insurance.
Plan: CM to discuss transfer to [facility] SNF for short term rehab with patient.
Original Note:
Dr. Muir requesting SNF referral be sent; CM will speak with Mary Jo to see if she is agreeable to SNF admission.
Unsure if [facility] will consider for admission. left for Liz Rondon to determine possibility of [facility] admission.
CM will speak with Mary Jo to see if she is agreeable to SNF admission.
SNF referrals sent to:
[facility]
[address] [facility], [place] [address]
[facility]
[address] [place] [address]
[facility]
[address] [place] [address] Online
[facility]
[address] [place] [address]
[facility]
[address] [place] [address]
[facility]
[address], [place] [address]
[2025-01-10] MEDS: TYLENOL 650 MG PO (14:51)
[2025-01-10 15:16] LABS: Hematocrit 35.9 % (37.0-47.0); Hemoglobin 12.1 g/dL (12.0-16.0); Mean Corp Hgb Conc. 33.7 g/dL (33.0-37.0); Mean Corpuscular Hgb 30.6 pg (27.0-31.0); Mean Corpuscular Volume 90.7 fL (81.0-99.0); Platelet Count 151 10^3/uL (130-400); Red Blood Cell Count 3.96 10^6/uL (4.20-5.40); Red Cell Dist. Width 12.8 % (11.5-14.5); White Blood Cell Count 7.2 10^3/uL (4.8-10.8)
--- NOTE | 2025-01-10 17:10 | CON.MD ---
Consultation - Medical
-
Referring Provider:�
Chief Complaint:�CVA
�
History of Present Illness:�54 y/o M, hx of HTN, HLD, MDD/PTSD presents to ER with headache, fall and weakness/numbness of right side. She reports initially headache started Wednesday, increase in intensity to /. She went to sleep last evening at
1030 pm in her usual state of health. this morning at 5 AM, she woke up with sudden onset Right leg numbness and weakness, which progressed to RUE numbness/weakness. She suffered a fall. No prior episodes. No other complaints. In ER, emergent stroke
alert did not reveal evidence of CVA. Patient admitted for further evaluation.
MRI of Brain - 01/08- No abnormal parenchymal signal intensity, mass effect, midline shift, or extra-axial collection. No hydrocephalus. No abnormal signal on diffusion imaging to suggest acute infarct. No acute intracranial abnormality noted.
Head/Neck CTA: Slightly limited by motion artifacts as above. No major branch vessel occlusion, flow-limiting stenosis, dissection, or aneurysm formation identified.
CT Scan- 01/08- No acute intracranial abnormality noted.
Seen by neurology- differential diagnoses with Migraine Aura, Left lacunar syndrome with hemiparesis/sensory deficits, probably component of conversion disorder -seen by psychiatry.
CT of the cervical spine performed on 01/09/2025 Multilevel degenerative disc disease, as well as cervical spondylotic changes, most evident at C5-C6, C6-C7. No obvious evidence of spinal canal impingement is seen. Right sided C3-C4 facet
arthropathy is noted laterally.
Seen by neurosurgery who is in agreement with neurology recommendation of EMG OP, PT/OT- No acute neurosurgical intervention recommended at present time in the hospital. May consider MRI of the neck OP if fails conservative measures and see OP pain
management/pain intervention.
Past Medical History:�HTN, HLD, MDD/PTSD, Migraine headache
Procedure History:�, appendectomy, Breast biopsy
Family History:�Father- stroke
�
Social History:�
Functional Level Premorbidly:�Independent with all activities�
Functional Level Currently:�Eating�set up, toileting�mod assist, toilet transfer�mod assist, bed mobility�supervision-min assist, transfer�min assist, ambulation 8 feet time 1, bathroom. 16 feet time 1 with rolling walker and min assist, second
person for safety
�
Tobacco:�Denies�
Alcohol:�Denies�
Drug use:�Denies�
�
Lives with:�Family
24-hour assistance available:�
Number of floors:�2
# steps to enter:�2
# steps to second floor:
Potential First floor set up:�
Driving:�yes
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
�
�
Allergies:�
Allergy/AdvReac Type Severity Reaction Status Date / Time
Penicillins Allergy Nausea / Verified 03/27/24 20:41
Vomiting
�
Review of Systems:�
Constitutional: (x) Normal _
Eye: (x) Normal _
Ear/Nose/Throat: (x) Normal _
Respiratory: (x) Normal _
Cardiovascular: (x) Normal _
Gastrointestinal: (x) Normal _
Genitourinary: (x) Normal _
Musculoskeletal: (x) abNormal _right sided weakness, tingling
Integumentary: (x) Normal _
Neurologic: (x) abNormal headache, migraine_
Psychiatric: (x) abNormal _MDD, borderline personality disorder
Endocrine: (x) Normal _
Hematologic/Lymphatic: (x) Normal _
Allergic/Immunologic: (x) Normal _
�
Medications:�
Active Current Visit Medication List
Category Date Time Status
0.9% Sodium Chloride [Nss (Preservative Free)] Med 01/09/25 08:00 Active
10 ml IV DAILY
Acetaminophen [Tylenol] Med 01/08/25 14:17 Active
650 mg PO Q4HPRN PRN
Aspirin Chewable [Low Strength Aspirin] Med 01/09/25 08:00 Active
81 mg PO DAILY
Atorvastatin [Lipitor] Med 01/08/25 18:00 Active
40 mg PO QPM
Bisacodyl [Dulcolax] Med 01/08/25 14:17 Active
10 mg RECTAL [id number] PRN
Diphenhydramine [Benadryl] Med 01/08/25 14:17 Active
25 mg IV Q6HPRN PRN
Docusate W/Senna [Senokot-S] Med 01/08/25 14:17 Active
1 tablet PO BIDPRN PRN
Enoxaparin Sodium [Lovenox] Med 01/08/25 18:00 Active
40 mg SC QPM
Ketorolac [Toradol] Med 01/08/25 14:17 Active
15 mg IV Q6HPRN PRN
Ondansetron Injectable [Zofran] Med 01/08/25 14:17 Active
4 mg IV Q6HPRN PRN
Pantoprazole [Protonix IV] Med 01/09/25 08:00 Active
40 mg IV DAILY
Polyethylene Glycol Powder [Miralax] Med 01/08/25 14:17 Active
17 grams PO DAILYPRN PRN
�
Vitals:�
Temp Pulse Resp BP Pulse Ox
98.9 F 70 18 131/79 98
01/10/25 15:00 01/10/25 15:00 01/10/25 15:00 01/10/25 15:00 01/10/25 15:54
Height 5 ft 3 in
Actual Weight 76.685 kg
Body Mass Index (BMI) 30.0
�
Physical Exam:�
General Appearance/Observation: Well-developed, well-nourished individual in no apparent distress.�Lying in bed
Pain/Comfort Assessment: RUE, elbow�
Mood/Affect: Appropriate�
�
Integumentary/Operative Site:�
�� Pressure Ulcer Evaluation: absent over heels.�
��
�� Other Type of Wound: absent�
��
Eyes: Conjunctiva/Lids: normal���� Pupils: pupils equal round and reactive to light and Accommodation�
Ears/Nose/Throat: oral mucosa moist,� throat clear.������������ Lips/Teeth/Gums: normal�
Neck: No muscle spasm or tenderness�
Cardiovascular: Heart: regular, no murmur�
Pulses: dorsalis pedis 2+ bilaterally�
Respiratory: Respiratory Effort/Chest Expansion: normal������� Auscultation: Clear to auscultation bilaterally�
Gastrointestinal: abdomen not tender, no distension, normal abdominal bowel sounds
Genitourinary: No Fleming�
Extremities:�Edema: None�Cyanosis: None�Trophic�changes: None
�
Neurology Exam:
Orientation: Alert, Oriented to self, Time, Place�
Memory: Intact for immediate medical concerns
Comprehension: Intact
Two step command: Intact
Naming: Intact
Cranial Nerves:
�� CNII:�Pupillary light reflex: Intact����Visual Field: Intact
�� CN III, IV, : Extraocular muscles: Intact�
�� CN V:�Facial Sensation�at�Forehead: Intact,�Maxilla: Intact,�Mandible: Intact
�� CN VII:�Facial movement: Symmetric
�� CN VIII:�Hearing: Normal
�� CN IX/X:�Speech & swallow: Normal,�Position of Uvula: Midline
�� CN XI:�Shoulder shrug: Symmetric
�� CN XII:�Tongue protrusion: Midline
Sensory:
�� Light touch: Intact in bilateral upper and lower extremities
�
Reflexes
�� Biceps: trace bilaterally
�� Brachioradialis: trace bilaterally
�� Triceps: trace bilaterally
�� Patellar: 2+ bilaterally
�� Achilles: absent bilaterally
�� Babinski: No response on right, Down going on left
�� Clonus: None
�� Camilla: Negative bilaterally�
Cerebellar: Dysmetria/Ataxia: None�
Musculoskeletal:
Motor: (Manual muscle scale 0-5)�
Muscle SA EF WE EE FF FA HF KE DF EHL PF
Right� 3+ 3+ 3+ 3 3+ 3 3+ 3+ 3+ 3+ 3+
Left 4 4 5 4 4 4 5 5 5 5 5
�
Tone: Normal in all extremities�
Range of Motion: Passively within normal limits . Right elbow pain with rom.
�
Lab Results:
Labs
WBC 7.2 10^3/uL (4.8-10.8) 01/10/25 05:49
RBC 3.96 10^6/uL (4.20-5.40) L 01/10/25 05:49
Hgb 12.1 g/dL (12.0-16.0) 01/10/25 05:49
Hct 35.9 % (37.0-47.0) L 01/10/25 05:49
MCV 90.7 fL (81.0-99.0) 01/10/25 05:49
MCH 30.6 pg (27.0-31.0) 01/10/25 05:49
MCHC 33.7 g/dL (33.0-37.0) 01/10/25 05:49
RDW 12.8 % (11.5-14.5) 01/10/25 05:49
Plt Count 151 10^3/uL (130-400) 01/10/25 05:49
MPV 13.0 fL (7.4-10.4) H 01/10/25 05:49
ESR 9 mm/hour (0-20) 01/08/25 10:49
PT 14.0 Sec (11.4-14.6) 01/08/25 08:43
INR 1.05 01/08/25 08:43
APTT 28.5 Sec (23.4-35.0) 01/08/25 08:43
D-Dimer 0.38 ug/mlFEU (0.00-0.50) 01/08/25 10:49
Sodium 142 mmol/L (135-145) 01/10/25 05:49
Potassium 4.4 mmol/L (3.5-5.1) 01/10/25 05:49
Chloride 113 mmol/L (98-107) H 01/10/25 05:49
Carbon Dioxide 24 mmol/L (22-30) 01/10/25 05:49
BUN 16 mg/dl (7-17) 01/10/25 05:49
Creatinine 0.9 mg/dL (0.6-1.0) 01/10/25 05:49
Estimated Creat Clear 70 ml/min 01/10/25 05:49
eGFR > 60.00 01/10/25 05:49
Glucose 92 mg/dl (70-99) 01/10/25 05:49
Hemoglobin A1c 5.4 % (4.0-5.6) 01/08/25 10:49
Calcium 9.2 mg/dl (8.4-10.2) 01/10/25 05:49
Magnesium 2.0 mg/dl (1.6-2.3) 01/08/25 10:49
Total Bilirubin 1.0 mg/dl (0.2-1.3) 01/08/25 08:43
AST 19 U/L (14-36) 01/08/25 08:43
ALT 15 U/L (0-35) 01/08/25 08:43
Alkaline Phosphatase 72 U/L (38-126) 01/08/25 08:43
Troponin I < 0.012 ng/ml 01/08/25 08:43
C-Reactive Protein < 5.00 mg/L (0.0-10.00) 01/08/25 10:49
Total Protein 6.8 g/dl (6.3-8.2) 01/08/25 08:43
Albumin 4.3 g/dl (3.5-5.0) 01/08/25 08:43
Triglycerides 108 mg/dl (10-149) 01/08/25 10:49
Total Cholesterol 239 mg/dl (50-199) H 01/08/25 10:49
LDL Cholesterol, Calc 159 mg/dl 01/08/25 10:49
VLDL Cholesterol, Calc 21 mg/dl (0-30) 01/08/25 10:49
HDL Cholesterol 59 mg/dl 01/08/25 10:49
Urine Opiates Screen Negative (Negative) 01/08/25 21:16
Ur Buprenorphine Negative (Negative) 01/08/25 21:16
Ur Oxycodone Screen Negative (Negative) 01/08/25 21:16
Urine Methadone Screen Negative (Negative) 01/08/25 21:16
Ur Barbiturates Screen Negative (Negative) 01/08/25 21:16
Ur Tricyclics Screen Negative (Negative) 01/08/25 21:16
Ur Phencyclidine Scrn Negative (Negative) 01/08/25 21:16
Ur Amphetamines Screen Negative (Negative) 01/08/25 21:16
U Methamphetamines Scrn Negative (Negative) 01/08/25 21:16
U Benzodiazepines Scrn Negative (Negative) 01/08/25 21:16
Urine Cocaine Screen Negative (Negative) 01/08/25 21:16
U Marijuana (THC) Screen Negative (Negative) 01/08/25 21:16
POC Glucose 85 mg/dl (70-99) 01/08/25 21:22
�
Diagnostic Results:�as per HPI�
�
Assessment: 54 year female with right side upper and lower extremities weakness with cervical spondylosis affecting ADL and ambulation.
�
Plan�
PM&R�PT/OT to increase independence with ADLs, improve balance, coordination, endurance, strength, mobility, community reintegration, decreased burden of care on others and family education.�
right dominant hemiparesis: No cva on images.No carotid stenosis. Weakness may be associated with Continue aspirin. High risk for falls and sliding out of chair/bed. Safety reinforced.�
- Avoid using affected arm to help lift or pull patient as this will cause trauma to the shoulder.
Cervical Spondylosis: No neurosurgical intervention. OP NCS/EMG. Pain management if conservative measures fail
HLD: Statin�
Migraines: Toradol, minimize ibuprofen use
Psych/PTSD/MDD: seen by psych. � Monitor mood, adjust medications as needed.�
Skin: monitor for pressure sores/rashes/lesions.�
Pain: acetaminophen as needed.�
Bowel: Colace and Senna, PRN bisacodyl.�
Bladder: Time void, PVRs, PRN straight cath.�
GI Prophylaxis: Pantoprazole�40mg qd
DVT Prophylaxis:�Lovenox
Pulmonary: Incentive spirometry�
Safety: Continue to reinforce assistance with all transfers.�
Code Status:� Full code
Dispo�(date/plan/equipment needs): Home with family care.� Social history reviewed.�
�
Functional and Medical Goals:�Modified Independent with ADL�s, ambulation, transfers�
�
Discharge Destination:� Patient with right side weakness of upper and lower extremity with spondylosis on cervical and lumbar images that is affecting ADLs and ambulation would benefit from acute inpatient rehabilitation for PT/OT to increase
independence with ADLs, improve endurance, strength, mobility, community reintegration, decreased burden of care on others and family education.�
�
�
Thank you for allowing me to care for your patient. Please contact me with any questions or concerns.
--- NOTE | 2025-01-10 17:53 | CON.NS ---
Consultation
-
Date/Time Consultation Performed: 01/10/2025; 18:10
Performing Provider: Connor
Chief Complaint
History of Present Illness
This is a neurosurgical consultation on a 54-year-old female with active medical issues including hypertension, hyperlipidemia, depression, PTSD, who presented on 01/08/2025 with weakness and numbness of the right side, as well as headache/fall. She
reported that the headache started several days prior and increased to intensity of 7/10. She had sudden onset of right leg numbness and weakness, which progressed to the arm. She suffered a fall. She was worked up for stroke and admitted for
further evaluation.She was seen by neurology and underwent a brain MRI which did not demonstrate any acute infarction. It was felt that she likely has probable migraine with aura. Given her upper, lower extremity symptoms, neurosurgery consulted.
Patient had a CT of the cervical spine which did demonstrate multilevel cervical spondylotic changes as well as foraminal narrowing at C3-C4, as well as discogenic disease at C6-C7. Therefore, neurosurgery was consulted.
Ultimately plan is to obtain outpatient EMG test as well as PT/OT.
Patient seen examined. Family is at bedside. Patient reports that she has had longstanding history of right-sided neck pain, and headaches. She attributed her pain to migraine-like headaches. She reports that the pain starts along the right
aspect of the head, and neck, and travels to the right shoulder. Symptoms are alleviated by taking Tylenol 3 times a day. Initially she stated the symptoms have been going on for several months, but later in the encounter, reports that 2 years
ago, she was advised by her PCP to try physical therapy for the similar symptoms.
She reports that she presented to the emergency room because as she attempted to get out of bed, she had significant weakness, and sustained a fall, due to her right leg not supporting her/giving out. She landed on her right side, and on her right
elbow. She currently denies any numbness or tingling in the extremities.
Additional history obtained from the patient's RN, who reports that she has been able to ambulate out of bed to the bathroom.
Review of Systems
-
10 point review of systems including constitutional, ENT, cardiovascular, respiratory, GI, , neurologic, musculoskeletal, hematologic, endocrinologic was performed, and was negative except for as stated in HPI.
Medication and Allergies
Home Medications
Home Medications
�Medication �Instructions �Recorded
acetaminophen 500 mg tablet 1,000 mg PO Q6HPRN PRN mild pain 01/08/25
Allergies
Allergies
Allergy/AdvReac Type Severity Reaction Status Date / Time
Penicillins Allergy Nausea / Verified 03/27/24 20:41
Vomiting
Physical Exam
-
Exam:
Awake, alert, no apparent distress. Appears mildly anxious.
Cranial nerves II through XII are grossly intact.
Motor: 5/5 strength in left upper, lower extremity in all muscle groups. At least 3+/5 in right arm, right leg diffusely, with poor effort noted.
Sensation to light touch is intact bilaterally in upper and lower extremities.
The patient demonstrates full range of motion of the neck in flexion, extension, bilateral lateral rotation.
Head is normocephalic atraumatic
Neck is supple
Breathing nonlabored
Cardiac regular rate
Abdomen is soft
Extremities are warm
CT of the cervical spine performed on 01/09/2025 was reviewed. Images reports viewed interpreted by me. Patient has multilevel degenerative disc disease, as well as cervical spondylotic changes, most evident at C5-C6, C6-C7. No obvious evidence of
spinal canal impingement is seen. Right sided C3-C4 facet arthropathy is noted laterally.
Problems
-
Problem Status Onset Code
Acute CVA (cerebrovascular accident) Acute I63.9
Assessment / Plan
-
This is a 54-year-old female who presented with headache, neck pain, and also with subsequent right upper, lower extremity symptoms.
CT of the cervical spine demonstrates cervical spondylotic changes,, degenerative in nature.
No acute neurosurgical intervention recommended at present time in the hospital.
Agree with course of pain control, physical therapy/Occupational Therapy, as well as outpatient EMG/NCV by neurology.
Can obtain MRI of the cervical spine as outpatient as well, if patient fails conservative measures including physical therapy, pain control, can then follow-up with pain management/physiatry, for interventional pain management/procedures such as HIMA.
[2025-01-10] MEDS: LOVENOX 40 MG SC (18:05)
[2025-01-10] MEDS: LIPITOR 40 MG PO (18:05)
[2025-01-11] VITALS (8 sets, daily range): BP systolic 117–154; BP diastolic 66–88; PULSE 78; O2SAT 98
[2025-01-11] MEDS: BENADRYL 25 MG IV (02:14)
[2025-01-11] MEDS: LOW STRENGTH ASPIRIN 81 MG PO (09:07)
[2025-01-11] MEDS: PROTONIX IV 40 MG IV (09:08)
[2025-01-11] MEDS: NSS (PRESERVATIVE FREE) 10 ML IV (09:08)
--- NOTE | 2025-01-11 11:24 | W.PN.UPDATE ---
Update Note
Progress Note Update
patient seen chart reviewed. goddaughter who is very much like patient's daughter was at bedside. this young woman was able to support a lot of the things mrs roque and i talked about over the past few days and offered the same intuition to her
aunt. patient has no trouble articulating her sadness at her marriage and the pain it has caused in her life but she struggles to imagine that anything could ever be different. says 'i just want everyone to be happy' but this is often at her own
expense. we talked about the issue of meds. her back films show significant musculoskeletal disease. she admits she is always in pain thought does not complain 'i have a high pain tolerance. ' suggested cymbalta for depression and pain. niece
takes it as well for her own musculoskeletal pain and depression. will start with 20 mg explained how it works side effects benefits. patient has been accepted for rehab likely in the next day or two. she does seem to be gaining in strength and
function since admit
--- NOTE | 2025-01-11 13:17 | W.PN.HOSP.TC ---
Today's Communication/Plan
-
Medically stable for dc to [facility] pending bed/auth
Assessment / Plan
Assessment / Plan
Assessment:
Left lacunar syndrome with hemiparesis/sensory deficits
- CTH/CTA/CTP negative in ER. MRI negative. Echo unremarkable
- CT C spine results as below
- OP NCS/EMG if symptoms persist
- probably component of conversion disorder (functional neurological symptom disorder); reviewed with psychiatry
- continue ASA/Statin
- headache control prn Reglan/Benadryl
- PT/OT - acute rehab recommended. consult placed.
Neck pain
- CT as below:
- SEVERE RIGHT-SIDED FACET JOINT ARTHROSIS at C3/C4 causing severe right neural foraminal narrowing and exiting right C4 nerve root impingement.
- SEVERE DISCOGENIC DEGENERATIVE DISEASE at C6/C7 with a moderate to large central disc-osteophyte complex causing mild to moderate spinal cord compression and central canal stenosis. Moderate to severe bilateral neural foraminal narrowing at C6/C7.
- Moderate to severe discogenic degenerative disease at C5/C6 with a disc-osteophyte complex causing mild spinal cord compression, mild central canal stenosis, and moderate to severe right neural foraminal narrowing.
- Mild spinal cord compression and central canal stenosis at C3/C4 and C4/C5.
- Neurosurg evaluated; nonoperative management with therapy/pain control
R elbow pain
- Xray: Acute soft tissue contusion in the posterior right elbow overlying the proximal ulna.
Lumbar back pain
- Xray: Moderate discogenic degenerative disease at L4/L5 and L5/S1. Moderate to severe bilateral facet joint arthrosis at L4/L5 and L5/S1
Essential HTN
- may need BP agent if BP>140/90
HLD
- Lipitor
MDD/PTSD
DVT ppx: Lovenox
Code: Full
Anticipated Discharge: 24 - 48 hours
Subjective/Interval History
-
Date of Service: January 11, 2025
more strength in RUE/RLE today
Objective Data
-
Vital Signs:
Vital Signs
Temp Pulse Resp BP Pulse Ox
98.9 F 81 17 137/88 100
01/11/25 11:01 01/11/25 11:01 01/11/25 11:01 01/11/25 11:01 01/11/25 11:01
I&O
01/10/25 01/11/25 01/12/25
06:59 06:59 06:59
Intake Total 500 / 500 740 / 740
Balance 500 / 500 740 / 740
Physical Exam
-
General: No Apparent Distress
HEENT: Normocephalic and Atraumatic
Respiratory: Negative Wheezes
Cardiac: Regular Rhythm and S1/S2
GI: Soft and Nontender
Musculoskeletal: No Edema
Neuro: AO x 3
Psych: Calm
Data Reviewed
-
Total Time Spent with Patient (in minutes): 45
Labs: Labs Reviewed by me
[2025-01-11 13:28] LABS: Lyme Antibody Screen, EIA Negative (Negative)
[2025-01-11] MEDS: LIPITOR 40 MG PO (18:06)
[2025-01-11] MEDS: LOVENOX 40 MG SC (18:06)
[2025-01-12] VITALS (7 sets, daily range): BP systolic 116–141; BP diastolic 70–79; PULSE 81
[2025-01-12] MEDS: LOW STRENGTH ASPIRIN 81 MG PO (08:01)
[2025-01-12] MEDS: CYMBALTA DELAYED RELEASE 20 MG PO (08:01)
[2025-01-12] MEDS: PROTONIX 40 MG PO (08:01)
--- NOTE | 2025-01-12 12:24 | W.PN.HOSP.TC ---
Today's Communication/Plan
-
dc to [facility] when bed/auth complete
Assessment / Plan
Assessment / Plan
Assessment:
Left lacunar syndrome with hemiparesis/sensory deficits
- CTH/CTA/CTP negative in ER. MRI negative. Echo unremarkable
- CT C spine results as below
- OP NCS/EMG if symptoms persist
- probably component of conversion disorder (functional neurological symptom disorder); reviewed with psychiatry
- continue ASA/Statin
- headache control prn Reglan/Benadryl
- PT/OT - acute rehab recommended and placement pending
Neck pain
- CT as below:
- SEVERE RIGHT-SIDED FACET JOINT ARTHROSIS at C3/C4 causing severe right neural foraminal narrowing and exiting right C4 nerve root impingement.
- SEVERE DISCOGENIC DEGENERATIVE DISEASE at C6/C7 with a moderate to large central disc-osteophyte complex causing mild to moderate spinal cord compression and central canal stenosis. Moderate to severe bilateral neural foraminal narrowing at C6/C7.
- Moderate to severe discogenic degenerative disease at C5/C6 with a disc-osteophyte complex causing mild spinal cord compression, mild central canal stenosis, and moderate to severe right neural foraminal narrowing.
- Mild spinal cord compression and central canal stenosis at C3/C4 and C4/C5.
- Neurosurg evaluated; nonoperative management with therapy/pain control
R elbow pain
- Xray: Acute soft tissue contusion in the posterior right elbow overlying the proximal ulna.
Lumbar back pain
- Xray: Moderate discogenic degenerative disease at L4/L5 and L5/S1. Moderate to severe bilateral facet joint arthrosis at L4/L5 and L5/S1
Essential HTN
- may need BP agent if BP>140/90
HLD
- Lipitor
MDD/PTSD
DVT ppx: Lovenox
Code: Full
More than 30 minutes spent in discharge including
Final examination of the patient
Summarizing hospital stay
Instructions for continuing care to all relevant caregivers
Preparation of discharge records, prescriptions, and referral forms
Total time spent (in minutes): 41
Anticipated Discharge: Today
Subjective/Interval History
-
Date of Service: January 12, 2025
resting comfortably, no complaints
Objective Data
-
Vital Signs:
Vital Signs
Temp Pulse Resp BP Pulse Ox
98.8 F 70 16 120/72 99
01/12/25 11:16 01/12/25 11:16 01/12/25 11:16 01/12/25 11:16 01/12/25 11:16
I&O
01/11/25 01/12/25 01/13/25
06:59 06:59 06:59
Intake Total 740 / 740 600 / 600
Balance 740 / 740 600 / 600
Physical Exam
-
General: No Apparent Distress
HEENT: Normocephalic and Atraumatic
Respiratory: Negative Wheezes
Cardiac: Regular Rhythm and S1/S2
GI: Soft and Nontender
Musculoskeletal: No Edema
Neuro: AO x 3
Psych: Calm
Data Reviewed
-
Total Time Spent with Patient (in minutes): 45
Labs: Labs Reviewed by me
--- NOTE | 2025-01-12 12:30 | W.DS.TRANS ---
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
-
Discharge Instructions:
Discharge Diagnosis/Procedures R sided weakness, no CVA on imaging
Diet Low Cholesterol
Activity As tolerated
Other Services OT,PT
Instructions:
Stand-Alone Forms:
Changes to Home Medications: No
Discharge Medications:
DC Medications w/original date entered in [facility]
acetaminophen 500 mg tablet 1,000 mg PO Q6HPRN PRN mild pain 01/08/25
aspirin 81 mg chewable tablet 81 mg PO DAILY #100 tabs 01/12/25
atorvastatin 40 mg tablet 40 mg PO QPM #30 tabs 01/12/25
duloxetine 20 mg capsule,delayed release 20 mg PO DAILY #30 caps 01/12/25
pantoprazole 40 mg tablet,delayed release 40 mg PO DAILY #30 tabs 01/12/25
Home Medication Changes
Pending Results: No
Total time spent discharging patient (in min): 41
--- NOTE | 2025-01-12 12:39 | CM ---
CM continues to follow for transfer to [facility] for acute rehab; [facility] does not have a bed available. Pt is agreeable to going to [facility]. Referral sent this am via fax; CM called [facility] to check on status; spoke with
Willa who advised that the case has not been assigned to anyone yet, and they only work on business days. Slim possibility that auth could be completed on Wednesday; when authorization is approved or denied, a fax will be sent to the CM fax.
Update to Liz Rondon at [facility]; asked if she had a contact at [facility] to try to push the authorization completion for transfer today. Liz will reach out to her contact and let me know.
Plan: Await [facility] authorization for transfer to [facility] [place].
[2025-01-12] MEDS: TYLENOL 650 MG PO (15:13)
--- NOTE | 2025-01-12 16:12 | CM ---
POLLY met with Mary Jo with a few male family members visiting. Updated her that we are awating [facility] insurance authorization and hoping it will come through via fax tomorrow, but if not, it is likely that she will not be transferred until
Wednesday,
01/15/2025.
Plan: Transfer to [facility] pending insurance authorization.
[2025-01-12] MEDS: LOVENOX 40 MG SC (17:42)
[2025-01-12] MEDS: LIPITOR 40 MG PO (17:42)
[2025-01-13 07:37] VITALS: BP 120/59
[2025-01-13] MEDS: PROTONIX 40 MG PO (08:21)
[2025-01-13] MEDS: CYMBALTA DELAYED RELEASE 20 MG PO (08:22)
[2025-01-13] MEDS: LOW STRENGTH ASPIRIN 81 MG PO (08:22)
--- NOTE | 2025-01-13 10:07 | W.PN.HOSP.TC ---
Today's Communication/Plan
-
Medically stable for discharge to [facility] pending bed/auth. CM aware.
Assessment / Plan
Assessment / Plan
Assessment:
Left lacunar syndrome with hemiparesis/sensory deficits
- CTH/CTA/CTP negative in ER. MRI negative. Echo unremarkable
- CT C spine results as below
- OP NCS/EMG if symptoms persist
- probably component of conversion disorder (functional neurological symptom disorder); reviewed with psychiatry
- continue ASA/Statin
- headache control prn Reglan/Benadryl
- PT/OT - acute rehab recommended and placement pending
Neck pain
- CT as below:
- SEVERE RIGHT-SIDED FACET JOINT ARTHROSIS at C3/C4 causing severe right neural foraminal narrowing and exiting right C4 nerve root impingement.
- SEVERE DISCOGENIC DEGENERATIVE DISEASE at C6/C7 with a moderate to large central disc-osteophyte complex causing mild to moderate spinal cord compression and central canal stenosis. Moderate to severe bilateral neural foraminal narrowing at C6/C7.
- Moderate to severe discogenic degenerative disease at C5/C6 with a disc-osteophyte complex causing mild spinal cord compression, mild central canal stenosis, and moderate to severe right neural foraminal narrowing.
- Mild spinal cord compression and central canal stenosis at C3/C4 and C4/C5.
- Neurosurg evaluated; nonoperative management with therapy/pain control
R elbow pain
- Xray: Acute soft tissue contusion in the posterior right elbow overlying the proximal ulna.
Lumbar back pain
- Xray: Moderate discogenic degenerative disease at L4/L5 and L5/S1. Moderate to severe bilateral facet joint arthrosis at L4/L5 and L5/S1
Essential HTN
- may need BP agent if BP>140/90
HLD
- Lipitor
MDD/PTSD
DVT ppx: Lovenox
Code: Full
Dispo: Medically stable for discharge to [facility] pending bed/auth. CM aware.
Anticipated Discharge: 24 - 48 hours
Subjective/Interval History
-
Date of Service: January 13, 2025
resting comfortably, no complaints
Objective Data
-
Vital Signs:
Vital Signs
Temp Pulse Resp BP Pulse Ox
98.1 F 55 22 120/59 98
01/13/25 07:37 01/13/25 07:37 01/13/25 07:37 01/13/25 07:37 01/13/25 07:37
I&O
01/12/25 01/13/25 01/14/25
06:59 06:59 06:59
Intake Total 600 / 600 660 / 660
Balance 600 / 600 660 / 660
Physical Exam
-
General: No Apparent Distress
HEENT: Normocephalic and Atraumatic
Respiratory: Negative Wheezes
Cardiac: Regular Rhythm and S1/S2
GI: Soft
Genito-urinary: No Costovertebral Tender
Neuro: AO x 3
Psych: Calm
Data Reviewed
-
Total Time Spent with Patient (in minutes): 41
Labs: Labs Reviewed by me
--- NOTE | 2025-01-13 11:39 | W.PN.UPDATE ---
Update Note
Progress Note Update
Pt seen, resting comfortably in bed. Pt alert, oriented, pleasant and cooperative, offering no acute complaints. Pt tolerating trial of Cymbalta 20 mg daily started yesterday, with no apparent side effects. Symptoms reportedly improving.
Imp/Rec: Unspecified depression, likely functional neurological disorder
Will continue trial of Cymbalta; Outpatient therapy when medically cleared/upon return home
Will follow intermittently
--- NOTE | 2025-01-13 11:41 | CM ---
Pending auth patient plan for transition to [facility]. CM will call to insurance to confirm auth status. CM will continue to follow for discharge planning needs.
Plan is for transition to [facility]
--- NOTE | 2025-01-13 15:56 | CM ---
CM called and spoke to front desk representative in [facility], no auth approval received via fax and CM spoke with liaison to confirm status of patient authorization request to go to acute care rehab. [facility]; Phone number .
CM spoke with Kellee front desk representative from [facility] who stated that the system does not show any clinical information has been received for a request to go to [place]/Acute care rehab. CM will fax clinical information at [phone]/or
[phone]. Per Kellee, [facility] will not allow the weekend liaisons to start or build a case for post acute referrals that has not been started during regular business hours. CM will send clinical information to start auth for acute care
[place] rehab to above information. CM will continue to follow for discharge planning needs.
Plan; pending auth to [facility].
[2025-01-13 16:12] VITALS: BP 125/65
[2025-01-13] MEDS: LOVENOX SC ×2 (18:13→18:22)
[2025-01-13] MEDS: LIPITOR 40 MG PO (18:14)
[2025-01-13 23:43] VITALS: BP 124/74
[2025-01-14 07:02] LABS: Hematocrit 38.6 % (37.0-47.0); Hemoglobin 12.8 g/dL (12.0-16.0); Mean Corp Hgb Conc. 33.2 g/dL (33.0-37.0); Mean Corpuscular Hgb 29.9 pg (27.0-31.0); Mean Corpuscular Volume 90.2 fL (81.0-99.0); Mean Platelet Volume 12.8 fL (7.4-10.4); Platelet Count 118 10^3/uL (130-400); Red Blood Cell Count 4.28 10^6/uL (4.20-5.40); Red Cell Dist. Width 12.7 % (11.5-14.5); White Blood Cell Count 8.9 10^3/uL (4.8-10.8)
[2025-01-14 07:42] LABS: Blood Urea Nitrogen 20 mg/dl (7-17); Calcium 9.4 mg/dl (8.4-10.2); Carbon Dioxide 21 mmol/L (22-30); Chloride 113 mmol/L (98-107); Estimated Creatinine Clearance 79 ml/min; Glucose 91 mg/dl (70-99); Sodium 141 mmol/L (135-145); eGFR > 60.00
[2025-01-14 07:53] VITALS: BP 103/61
[2025-01-14] MEDS: PROTONIX 40 MG PO (08:22)
[2025-01-14] MEDS: LOW STRENGTH ASPIRIN 81 MG PO (08:22)
[2025-01-14] MEDS: CYMBALTA DELAYED RELEASE 20 MG PO (08:22)
[2025-01-14] MEDS: TYLENOL 650 MG PO (10:58)
--- NOTE | 2025-01-14 11:37 | W.PN.UPDATE ---
Update Note
Progress Note Update
patient seen chart reviewed. spoke with nursing. mrs castillo is having a bit more back pain and asked for pain meds. she is despite this,feeling her physical functioning is improving. she asked me if i felt she still needed to go to rehab if it is
going to be a few more days until there is a bed. i suggested she be guided by PT recommendations. if they feel she needs rehab to build confidence or strength she should do it. 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
rehab should she go. also if she continues with pain despite rehab and PT she should consider other options to help her pain rather than simply living with it eg chiropractor surgeon acupuncture. we talked about psych meds ...would inc cymbalta to
30 mg in a few days or so then, in a week or two, inc cymbalta to 60 mg. psych will sign off. ...
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
[2025-01-14 15:41] VITALS: BP 125/62
--- NOTE | 2025-01-14 15:43 | W.PN.UPDATE ---
Update Note
Progress Note Update
C spine MRI images were reviewed. No evidence of intrincic/extrinsic myelopathy.
Please proceed with outpatient NCS/EMG and PT.
Please recall neurology services any questions or concerns
Karena Henning
Neurology
--- NOTE | 2025-01-14 15:48 | W.PN.HOSP.TC ---
Today's Communication/Plan
-
await insurance input regarding acute inpt rehab
Assessment / Plan
Assessment / Plan
Assessment:
Left lacunar syndrome with hemiparesis/sensory deficits
- CTH/CTA/CTP negative in ER. MRI negative. Echo unremarkable
- CT C spine results as below
- OP NCS/EMG if symptoms persist
- probably component of conversion disorder (functional neurological symptom disorder); reviewed with psychiatry
- continue ASA/Statin
- headache control prn Reglan/Benadryl
Call placed and discussed with Dr. Henning
input appreciated. Recommends NCS/EMG as outpatient
MRI of cervical spine: 1. SEVERE RIGHT-SIDED FACET JOINT ARTHROSIS at C3/C4 causing severe right neural foraminal narrowing.
2. Small disc herniations at C4/C5 and C5/C6 causing minimal spinal cord compression. Moderate right neural foraminal narrowing at C4/C5 and C5/C6.
3. Severe discogenic degenerative disease at C6/C7 with a moderate-sized disc-osteophyte complex causing minimal spinal cord compression, minimal central canal stenosis, and moderate bilateral neural foraminal narrowing.
4. Mild kyphosis at C4/C5.
- PT/OT - acute rehab recommended and placement pending
Neck pain
- CT as below:
- SEVERE RIGHT-SIDED FACET JOINT ARTHROSIS at C3/C4 causing severe right neural foraminal narrowing and exiting right C4 nerve root impingement.
- SEVERE DISCOGENIC DEGENERATIVE DISEASE at C6/C7 with a moderate to large central disc-osteophyte complex causing mild to moderate spinal cord compression and central canal stenosis. Moderate to severe bilateral neural foraminal narrowing at C6/C7.
- Moderate to severe discogenic degenerative disease at C5/C6 with a disc-osteophyte complex causing mild spinal cord compression, mild central canal stenosis, and moderate to severe right neural foraminal narrowing.
- Mild spinal cord compression and central canal stenosis at C3/C4 and C4/C5.
- Neurosurg evaluated; nonoperative management with therapy/pain control
R elbow pain
- Xray: Acute soft tissue contusion in the posterior right elbow overlying the proximal ulna.
Lumbar back pain
- Xray: Moderate discogenic degenerative disease at L4/L5 and L5/S1. Moderate to severe bilateral facet joint arthrosis at L4/L5 and L5/S1
Essential HTN
- may need BP agent if BP>140/90. Most recent BP was 125/62
HLD
- Lipitor
MDD/PTSD
DVT ppx: Lovenox
Code: Full
Dispo: Medically stable for discharge to [place] pending bed/auth. CM aware.
Anticipated Discharge: 24 - 48 hours
Subjective/Interval History
-
Date of Service: January 14, 2025
Pt stats she is doing better, awaiting input from insurance regarding acute rehab
Objective Data
-
Labs:
Laboratory Results
01/14/25
06:44
WBC 8.9
Hgb 12.8
Hct 38.6
Plt Count 118 L D
Sodium 141
Potassium 5.0
Chloride 113 H
Carbon Dioxide 21 L
BUN 20 H
Creatinine 0.8
Glucose 91
Calcium 9.4
Vital Signs:
Vital Signs
Temp Pulse Resp BP Pulse Ox
98.4 F 67 23 125/62 99
01/14/25 15:41 01/14/25 15:41 01/14/25 15:41 01/14/25 15:41 01/14/25 15:41
I&O
01/13/25 01/14/25 01/15/25
06:59 06:59 06:59
Intake Total 660 / 660 1200 / 1200
Balance 660 / 660 1200 / 1200
Review of Systems
-
History Source: Patient and Physician (reviewed with Dr. Henning)
Constitutional: Reports No Symptoms
EENT: Reports No Symptoms Reported
Respiratory: Reports No Symptoms
Cardiac: Reports No Symptoms
Abdomen/GI: Reports No Symptoms
Musculoskeletal: Reports Muscle Weakness
Physical Exam
-
General: Well Developed, Well Nourished and No Apparent Distress
HEENT: Normocephalic, Atraumatic and Moist Mucous Membranes
Respiratory: Clear to Auscultation; Negative Wheezes, Rales or Rhonchi
Cardiac: Regular Rhythm and S1/S2
GI: Soft, Nontender and Nondistended
Musculoskeletal: No Clubbing, No Cyanosis and No Edema
Neuro: Awake, Alert and Oriented; Negative No Motor Deficits (rt sided weakness UE, bilateral LE weakness with gait dysfunction requiring walker in order to ambulate)
[2025-01-14] MEDS: LOVENOX 40 MG SC (18:02)
[2025-01-14] MEDS: LIPITOR 40 MG PO (18:02)
[2025-01-14 23:25] VITALS: BP 113/67
[2025-01-15 07:20] VITALS: BP 110/69
[2025-01-15] MEDS: CYMBALTA DELAYED RELEASE 20 MG PO (09:01)
[2025-01-15] MEDS: PROTONIX 40 MG PO (09:01)
[2025-01-15] MEDS: LOW STRENGTH ASPIRIN 81 MG PO (09:01)
[2025-01-15] MEDS: TYLENOL 650 MG PO ×2 (09:20→17:54)
[2025-01-15 10:55] VITALS: BP 124/68; PULSE 71; O2SAT 98
--- NOTE | 2025-01-15 10:58 | CM ---
TOYA Bradley from [address] [phone], looks like the [facility] case was attached to the acute care case at the insurance company.
Please refax and reference auth # [id number], put in large print this is for rehab authorization at [place]. refax clinicals to [phone].
[2025-01-15 12:09] VITALS: BP 124/68; PULSE 71; O2SAT 98
--- NOTE | 2025-01-15 14:30 | W.PN.HOSP.TC ---
Today's Communication/Plan
-
hopefully acute rehab in near future
Assessment / Plan
Assessment / Plan
Assessment:
Left lacunar syndrome with hemiparesis/sensory deficits
- CTH/CTA/CTP negative in ER. MRI negative. Echo unremarkable
- CT C spine results as below
- OP NCS/EMG if symptoms persist
- probably component of conversion disorder (functional neurological symptom disorder); reviewed with psychiatry
- continue ASA/Statin
- headache control prn Reglan/Benadryl
Call placed and discussed with Dr. Glass. No beds available at [facility], bed available at [facility]. Await input from insurance. Pt will need EMG/NCV study, hopefully can go to [facility] where she can get done
I remain concerned that she should have further evaluation of gait dysfunction, including further evaluation at [facility], including EMG/NCS. Await decision
input appreciated. Recommends NCS/EMG as outpatient
MRI of cervical spine: 1. SEVERE RIGHT-SIDED FACET JOINT ARTHROSIS at C3/C4 causing severe right neural foraminal narrowing.
2. Small disc herniations at C4/C5 and C5/C6 causing minimal spinal cord compression. Moderate right neural foraminal narrowing at C4/C5 and C5/C6.
3. Severe discogenic degenerative disease at C6/C7 with a moderate-sized disc-osteophyte complex causing minimal spinal cord compression, minimal central canal stenosis, and moderate bilateral neural foraminal narrowing.
4. Mild kyphosis at C4/C5.
- PT/OT - acute rehab recommended and placement pending
Neck pain
- CT as below:
- SEVERE RIGHT-SIDED FACET JOINT ARTHROSIS at C3/C4 causing severe right neural foraminal narrowing and exiting right C4 nerve root impingement.
- SEVERE DISCOGENIC DEGENERATIVE DISEASE at C6/C7 with a moderate to large central disc-osteophyte complex causing mild to moderate spinal cord compression and central canal stenosis. Moderate to severe bilateral neural foraminal narrowing at C6/C7.
- Moderate to severe discogenic degenerative disease at C5/C6 with a disc-osteophyte complex causing mild spinal cord compression, mild central canal stenosis, and moderate to severe right neural foraminal narrowing.
- Mild spinal cord compression and central canal stenosis at C3/C4 and C4/C5.
- Neurosurg evaluated; nonoperative management with therapy/pain control
R elbow pain
- Xray: Acute soft tissue contusion in the posterior right elbow overlying the proximal ulna.
Lumbar back pain
- Xray: Moderate discogenic degenerative disease at L4/L5 and L5/S1. Moderate to severe bilateral facet joint arthrosis at L4/L5 and L5/S1
Essential HTN
- may need BP agent if BP>140/90. Most recent BP was 125/62
HLD
- Lipitor
MDD/PTSD
DVT ppx: Lovenox
Code: Full
reviewed situation with Dr. Glass extensively
Dispo: Medically stable for discharge to [facility]. CM aware.
Anticipated Discharge: 24 - 48 hours
Subjective/Interval History
-
Date of Service: January 15, 2025
Pt believes she is able to ambulate better
Objective Data
-
Vital Signs:
Vital Signs
Temp Pulse Resp BP Pulse Ox
97.9 F 60 14 110/69 100
01/15/25 07:20 01/15/25 07:20 01/15/25 07:20 01/15/25 07:20 01/15/25 11:26
I&O
01/14/25 01/15/25 01/16/25
06:59 06:59 06:59
Intake Total 1200 / 1200 660 / 660
Balance 1200 / 1200 660 / 660
Review of Systems
-
History Source: Patient, Family ( in room) and Physician (reviewed with Dr. Glass)
Constitutional: Reports No Symptoms
EENT: Reports No Symptoms Reported
Respiratory: Reports No Symptoms
Cardiac: Reports No Symptoms
Abdomen/GI: Reports No Symptoms
Musculoskeletal: Reports Muscle Weakness
Physical Exam
-
General: Well Developed, Well Nourished and No Apparent Distress
HEENT: Normocephalic, Atraumatic and Moist Mucous Membranes
Respiratory: Clear to Auscultation; Negative Wheezes, Rales or Rhonchi
Cardiac: Regular Rhythm and S1/S2
GI: Soft, Nontender and Nondistended
Musculoskeletal: No Clubbing, No Cyanosis and No Edema
Neuro: Awake, Alert and Oriented; Negative No Motor Deficits (rt sided weakness UE, bilateral LE weakness with gait dysfunction requiring walker in order to ambulate, minimal improvement in gait today)
[2025-01-15 15:35] VITALS: BP 130/75
--- NOTE | 2025-01-15 16:55 | CM ---
CM continues to follow; multiple calls with Khurram Gates today, advised that the clinical is being reviewed by the physician advisor.
Additional records sent for review: PT, OT, PMR, Neurology, Psych.
CM to follow up again in AM for Acute Rehab transfer to [facility].
[2025-01-15] MEDS: LOVENOX SC ×2 (17:35→19:53)
[2025-01-15] MEDS: LIPITOR 40 MG PO (17:35)
[2025-01-15 23:36] VITALS: BP 115/71
[2025-01-16 06:50] LABS: ALT (SGPT) 127 U/L (0-35); AST (SGOT) 45 U/L (14-36); Albumin 4.1 g/dl (3.5-5.0); Alkaline Phosphatase 70 U/L (38-126); Blood Urea Nitrogen 22 mg/dl (7-17); Calcium 9.6 mg/dl (8.4-10.2); Carbon Dioxide 23 mmol/L (22-30); Chloride 112 mmol/L (98-107); Estimated Creatinine Clearance 90 ml/min; Glucose 90 mg/dl (70-99); Potassium 4.6 mmol/L (3.5-5.1); Sodium 140 mmol/L (135-145); Total Bilirubin 0.6 mg/dl (0.2-1.3); Total Protein 6.6 g/dl (6.3-8.2); eGFR > 60.00
[2025-01-16 06:59] LABS: % Basophils 0.9 % (0-2); % Eosinophils 6.9 % (0-6); % Immature Granulocytes 0.5 % (0-0.5); % Lymphocytes 25.7 % (20.5-51.1); % Monocytes 7.5 % (1.7-9.3); % Neutrophils 58.5 % (42.2-75.2); Absolute Basophils 0.1 10^3/uL (0-0.2); Absolute Eosinophils 0.7 10^3/uL (0-0.7); Absolute Immature Granulocytes 0.1 10^3/uL (0-0.05); Absolute Lymphocytes 2.5 10^3/uL (1.2-3.4); Absolute Monocytes 0.7 10^3/uL (0.1-0.6); Absolute Neutrophils 5.8 10^3/uL (1.4-6.5); Hematocrit 39.4 % (37.0-47.0); Hemoglobin 13.2 g/dL (12.0-16.0); Mean Corp Hgb Conc. 33.5 g/dL (33.0-37.0); Mean Corpuscular Hgb 30.2 pg (27.0-31.0); Mean Corpuscular Volume 90.2 fL (81.0-99.0); Mean Platelet Volume 13.1 fL (7.4-10.4); Nucleated Red Blood Cells % 0 %; Platelet Count 163 10^3/uL (130-400); Red Blood Cell Count 4.37 10^6/uL (4.20-5.40); Red Cell Dist. Width 12.6 % (11.5-14.5); White Blood Cell Count 9.9 10^3/uL (4.8-10.8)
[2025-01-16 07:30] VITALS: BP 130/77
[2025-01-16] MEDS: LOW STRENGTH ASPIRIN 81 MG PO (08:25)
[2025-01-16] MEDS: PROTONIX 40 MG PO (08:26)
[2025-01-16] MEDS: TYLENOL 650 MG PO ×2 (08:26→22:46)
[2025-01-16] MEDS: CYMBALTA DELAYED RELEASE 20 MG PO (08:26)
--- NOTE | 2025-01-16 11:52 | CM ---
POLLY called [facility] for update regarding transfer to [facility]. Per Malini at [facility], the physician has denied the transfer to [facility]. Peer to Peer is available by calling [phone]. left for Liz Rondon to determine if
[facility] will complete the peer to peer.
Await updates from [facility] regarding peer to peer.
--- NOTE | 2025-01-16 13:02 | CM ---
Dr. Johnston submitted peer to peer; She was advised that a decision would be made by tomorrow at noon.
CM will continue to follow.
--- NOTE | 2025-01-16 15:05 | W.PN.HOSP.TC ---
Today's Communication/Plan
-
await insurance decision on [facility]
Assessment / Plan
Assessment / Plan
Assessment:
Left lacunar syndrome with hemiparesis/sensory deficits
- CTH/CTA/CTP negative in ER. MRI negative. Echo unremarkable
- CT C spine results as below
- OP NCS/EMG if symptoms persist
- probably component of conversion disorder (functional neurological symptom disorder); reviewed with psychiatry
- continue ASA/Statin
- headache control prn Reglan/Benadryl
Call placed and discussed with Dr. Glass. No beds available at [facility], bed available at [facility]. Await input from insurance. Pt will need EMG/NCV study, hopefully can go to [facility] where she can get done
I remain concerned that she should have further evaluation of gait dysfunction, including further evaluation at [facility], including EMG/NCS. Await decision
input appreciated. Recommends NCS/EMG as outpatient
MRI of cervical spine: 1. SEVERE RIGHT-SIDED FACET JOINT ARTHROSIS at C3/C4 causing severe right neural foraminal narrowing.
2. Small disc herniations at C4/C5 and C5/C6 causing minimal spinal cord compression. Moderate right neural foraminal narrowing at C4/C5 and C5/C6.
3. Severe discogenic degenerative disease at C6/C7 with a moderate-sized disc-osteophyte complex causing minimal spinal cord compression, minimal central canal stenosis, and moderate bilateral neural foraminal narrowing.
4. Mild kyphosis at C4/C5.
- PT/OT - acute rehab recommended and placement pending
Neck pain
- CT as below:
- SEVERE RIGHT-SIDED FACET JOINT ARTHROSIS at C3/C4 causing severe right neural foraminal narrowing and exiting right C4 nerve root impingement.
- SEVERE DISCOGENIC DEGENERATIVE DISEASE at C6/C7 with a moderate to large central disc-osteophyte complex causing mild to moderate spinal cord compression and central canal stenosis. Moderate to severe bilateral neural foraminal narrowing at C6/C7.
- Moderate to severe discogenic degenerative disease at C5/C6 with a disc-osteophyte complex causing mild spinal cord compression, mild central canal stenosis, and moderate to severe right neural foraminal narrowing.
- Mild spinal cord compression and central canal stenosis at C3/C4 and C4/C5.
- Neurosurg evaluated; nonoperative management with therapy/pain control
R elbow pain
- Xray: Acute soft tissue contusion in the posterior right elbow overlying the proximal ulna.
Lumbar back pain
- Xray: Moderate discogenic degenerative disease at L4/L5 and L5/S1. Moderate to severe bilateral facet joint arthrosis at L4/L5 and L5/S1
Essential HTN
- may need BP agent if BP>140/90. Most recent BP was 130/77
HLD
- Lipitor
MDD/PTSD
DVT ppx: Lovenox
Code: Full
reviewed situation with Dr. Mcpherson 01/15
Dispo: Medically stable for discharge to [facility] pending bed/auth. CM aware.
Anticipated Discharge: 24 - 48 hours
Subjective/Interval History
-
Date of Service: January 16, 2025
Asking when she can go home, repeatedly states that if she can not get into acute rehab, she will not go to SNF
Objective Data
-
Labs:
Laboratory Results
01/16/25
05:48
WBC 9.9
Hgb 13.2
Hct 39.4
Plt Count 163 D
Sodium 140
Potassium 4.6
Chloride 112 H
Carbon Dioxide 23
BUN 22 H
Creatinine 0.7
Glucose 90
Calcium 9.6
Total Bilirubin 0.6
AST 45 H
ALT 127 H
Alkaline Phosphatase 70
Vital Signs:
Vital Signs
Temp Pulse Resp BP Pulse Ox
97.9 F 57 16 130/77 96
01/16/25 07:30 01/16/25 07:30 01/16/25 07:30 01/16/25 07:30 01/16/25 07:30
I&O
01/15/25 01/16/25 01/17/25
06:59 06:59 06:59
Intake Total 660 / 660 480 / 480
Balance 660 / 660 480 / 480
Review of Systems
-
History Source: Patient and Coordinated Provider
Constitutional: Reports No Symptoms
EENT: Reports No Symptoms Reported
Respiratory: Reports No Symptoms
Cardiac: Reports No Symptoms
Abdomen/GI: Reports No Symptoms
Musculoskeletal: Reports Muscle Weakness
Physical Exam
-
General: Well Developed, Well Nourished and No Apparent Distress
HEENT: Normocephalic, Atraumatic and Moist Mucous Membranes
Respiratory: Clear to Auscultation; Negative Wheezes, Rales or Rhonchi
Cardiac: Regular Rhythm and S1/S2
GI: Soft, Nontender and Nondistended
Musculoskeletal: No Clubbing, No Cyanosis and No Edema
Neuro: Awake, Alert and Oriented; Negative No Motor Deficits (rt sided weakness UE, bilateral LE weakness with gait dysfunction requiring walker in order to ambulate, minimal improvement in gait today. Still with shuffling gait)
[2025-01-16 15:29] VITALS: BP 127/85
[2025-01-16 15:48] VITALS: BP 127/85; PULSE 81; O2SAT 98
[2025-01-16] MEDS: LIPITOR 40 MG PO (17:05)
[2025-01-16] MEDS: LOVENOX SC (17:05)
[2025-01-16 23:00] VITALS: BP 115/64
[2025-01-17] MEDS: TUMS CHEWABLE TABLET 200 MG PO (00:01)
[2025-01-17 07:30] VITALS: BP 106/54
[2025-01-17] MEDS: PROTONIX 40 MG PO (08:50)
[2025-01-17] MEDS: LOW STRENGTH ASPIRIN 81 MG PO (08:50)
[2025-01-17] MEDS: CYMBALTA DELAYED RELEASE 20 MG PO (08:50)
--- NOTE | 2025-01-17 13:43 | CM ---
POLLY called Khurram Gates for update regarding transfer to [facility]. After many calls, and phone transfers, I spoke with someone in the pharmacy department who was able to find the determination in the system; she advised that the appeal was denied and
a letter was sent yesterday via [employer] to the patient's home.
POLLY met with pt to make her aware of the outcome. She will stay at her son's home at discharge where the home is handicap accessible. Discussed with PT and OT who recommend outpatient PT and OT for follow up. Her son will provide transportation
to/from outpatient therapy.
Plan: Discharge to son's home with outpatient PT and OT today.
--- NOTE | 2025-01-17 15:34 | W.PN.HOSP.TC ---
Today's Communication/Plan
-
dc to home
Assessment / Plan
Assessment / Plan
Assessment:
Left lacunar syndrome with hemiparesis/sensory deficits
- CTH/CTA/CTP negative in ER. MRI negative. Echo unremarkable
- CT C spine results as below
- OP NCS/EMG if symptoms persist
- probably component of conversion disorder (functional neurological symptom disorder); reviewed with psychiatry
- continue ASA/Statin
- headache control prn Reglan/Benadryl
Call placed and discussed with Dr. Glass. No beds available at [facility], bed available at [facility]. Final decision from insurance, transfer has been denied. Pt will need EMG/NCV study, hopefully will be able to make outpt
arrangements, where she can get done
I remain concerned that she should have further evaluation of gait dysfunction, including further evaluation at [facility], including EMG/NCS. Unable to get done
input appreciated. Recommends NCS/EMG as outpatient
MRI of cervical spine: 1. SEVERE RIGHT-SIDED FACET JOINT ARTHROSIS at C3/C4 causing severe right neural foraminal narrowing.
2. Small disc herniations at C4/C5 and C5/C6 causing minimal spinal cord compression. Moderate right neural foraminal narrowing at C4/C5 and C5/C6.
3. Severe discogenic degenerative disease at C6/C7 with a moderate-sized disc-osteophyte complex causing minimal spinal cord compression, minimal central canal stenosis, and moderate bilateral neural foraminal narrowing.
4. Mild kyphosis at C4/C5.
- PT/OT - acute rehab recommended
Neck pain
- CT as below:
- SEVERE RIGHT-SIDED FACET JOINT ARTHROSIS at C3/C4 causing severe right neural foraminal narrowing and exiting right C4 nerve root impingement.
- SEVERE DISCOGENIC DEGENERATIVE DISEASE at C6/C7 with a moderate to large central disc-osteophyte complex causing mild to moderate spinal cord compression and central canal stenosis. Moderate to severe bilateral neural foraminal narrowing at C6/C7.
- Moderate to severe discogenic degenerative disease at C5/C6 with a disc-osteophyte complex causing mild spinal cord compression, mild central canal stenosis, and moderate to severe right neural foraminal narrowing.
- Mild spinal cord compression and central canal stenosis at C3/C4 and C4/C5.
- Neurosurg evaluated; nonoperative management with therapy/pain control
R elbow pain
- Xray: Acute soft tissue contusion in the posterior right elbow overlying the proximal ulna.
Lumbar back pain
- Xray: Moderate discogenic degenerative disease at L4/L5 and L5/S1. Moderate to severe bilateral facet joint arthrosis at L4/L5 and L5/S1
Essential HTN
- may need BP agent if BP>140/90. Most recent BP was 106/54
HLD
- Lipitor
MDD/PTSD
DVT ppx: Lovenox
Code: Full
reviewed situation with Dr. Glass extensively 01/15
Dispo: dc now
need follow up with PM&R - Manuel Feliz
see dictated note
More than 30 minutes spent in discharge including
Final examination of the patient
Summarizing hospital stay
Instructions for continuing care to all relevant caregivers
Preparation of discharge records, prescriptions, and referral forms
Total time spent (in minutes): 45
Anticipated Discharge: Today
Subjective/Interval History
-
Date of Service: January 17, 2025
As per POLLY Patino, insurance has denied pt going to [facility]. Pt will not consider any alternative and wants to go home
Objective Data
-
Vital Signs:
Vital Signs
Temp Pulse Resp BP Pulse Ox
98.6 F 59 16 106/54 99
01/17/25 07:30 01/17/25 07:30 01/17/25 07:30 01/17/25 07:30 01/17/25 08:45
I&O
01/16/25 01/17/25 01/18/25
06:59 06:59 06:59
Intake Total 480 / 480 820 / 820
Balance 480 / 480 820 / 820
Review of Systems
-
History Source: Patient and Coordinated Provider
Constitutional: Reports No Symptoms
EENT: Reports No Symptoms Reported
Respiratory: Reports No Symptoms
Cardiac: Reports No Symptoms
Abdomen/GI: Reports No Symptoms
Musculoskeletal: Reports Muscle Weakness
Physical Exam
-
General: Well Developed, Well Nourished and No Apparent Distress
HEENT: Normocephalic, Atraumatic and Moist Mucous Membranes
Respiratory: Clear to Auscultation; Negative Wheezes, Rales or Rhonchi
Cardiac: Regular Rhythm and S1/S2
GI: Soft, Nontender and Nondistended
Musculoskeletal: No Clubbing, No Cyanosis and No Edema
Neuro: Awake, Alert and Oriented; Negative No Motor Deficits (rt sided weakness UE, bilateral LE weakness with gait dysfunction requiring walker in order to ambulate, further minimal improvement in gait today. Still with shuffling gait)
[2025-01-17 16:00] VITALS: BP 148/84
--- NOTE | 2025-01-17 17:25 | W.DS.TRANS ---
DC Summary - [employer]
-
Discharge Instructions:
Discharge Diagnosis/Procedures R sided weakness, no CVA on imaging
Diet Low Cholesterol
Activity With assistance,With Walker
Driving Restrictions No driving
Bathing Restrictions None
Other Services OT,PT,VN
Instructions:
Stand-Alone Forms:
Changes to Home Medications: Yes
Discharge Medications:
DC Medications w/original date entered in [employer]
acetaminophen 500 mg tablet 1,000 mg PO Q6HPRN PRN mild pain 01/08/25
aspirin 81 mg chewable tablet 81 mg PO DAILY #100 tabs 01/12/25
atorvastatin 40 mg tablet 40 mg PO QPM #30 tabs 01/12/25
duloxetine 20 mg capsule,delayed release 20 mg PO DAILY #30 caps 01/12/25
pantoprazole 40 mg tablet,delayed release 40 mg PO DAILY #30 tabs 01/12/25
Home Medication Changes
Lipitor, aspirin, duloxetine and protonix are new
Pending Results: No
[2025-01-17 17:29] VITALS: BP 133/76; PULSE 77; O2SAT 98
--- NOTE | 2025-01-18 08:56 | CM ---
Addendum entered by Carey Gupta 01/18/25 12:31:
CM contacted pt's son, Shasta, to make him aware of approval [facility]. He has questions, and plans to call Liz Nela via phone, as she had provided her telephone number to him.
Addendum entered by Rosa Fletcher 01/18/25 10:02:
TCB from [facility] Ballard CM at [address], she discussed with quality assurance supervisor Ana Gonsalez and patient can be admitted to acute rehab from Home. NRD 1 week from today.
Addendum entered by Rosa Fletcher 01/18/25 09:47:
Bed available at [facility]. Per [facility], no fax received.
Addendum entered by Rosa Fletcher 01/18/25 09:36:
TCB from Nataliia Ballard, [address]- patient's acute rehab authorization was overturned on appeal at 1652 pm. Determination faxed to accepting facility, not hospital.
Hospital director of compensation texted CM of overturn late in day, patient already discharged.
Per Nataliia Ballard approval reference# [id number], approved 7 days from date of admission. Nataliia Ballard checking to verify if patient can be admitted from home. Await TCB.
[facility], no beds available. Await [facility] bed availability.
Original Note:
TC to [facility] [phone]- [facility], spoke with intake rep. She reviewed case, stated DOS 01/12/25 thru 01/20/25 was approved acute inpatient for [facility] not for [facility]. reference # [id number] (which was the acute
admission, however admission date for the acute admission is 01/08/25). CM explained we have made multiple phone calls and looks like [facility] information was combined with inpatient admission. Acute rehab was initially denied and then overturned
on appeal, rep had not information to verify. CM asked for this to be escalated quality assurance supervisor and a call back TRU as this is a disservice to patient.
== END 2025-01-17 17:53 | disposition home or self-care (01) | DRG 71 ==
LOC: 3 WEST ACU 12:24
PROVIDERS: ADMITTING PHYSICIAN Internal Medicine; ATTENDING PHYSICIAN Internal Medicine; CONSULT PHYSICIAN Psychiatry & Neurology Neurology; EMERGENCY PHYSICIAN Emergency Medicine; FAMILY PHYSICIAN Nurse Practitioner Family; OTHER PHYSICIAN Neurological Surgery; OTHER PHYSICIAN Physical Medicine & Rehabilitation; OTHER PHYSICIAN Psychiatry & Neurology Psychiatry
DX: G46.7 Other lacunar syndromes (principal); G81.91 Hemiplegia, unspecified affecting right dominant side; M50.01 Cervical disc disorder with myelopathy, high cervical region; M50.023 Cervical disc disorder at C6-C7 level with myelopathy; F32.9 Major depressive disorder, single episode, unspecified; J45.909 Unspecified asthma, uncomplicated; M48.02 Spinal stenosis, cervical region; G43.109 Migraine with aura, not intractable, without status migrainosus; F60.3 Borderline personality disorder; M54.50 Low back pain, unspecified; M79.601 Pain in right arm; F44.9 Dissociative and conversion disorder, unspecified; I11.9 Hypertensive heart disease without heart failure; G89.29 Other chronic pain; F43.10 Post-traumatic stress disorder, unspecified; E78.5 Hyperlipidemia, unspecified; W06.XXXA Fall from bed, initial encounter; Y93.89 Activity, other specified; Y92.003 Bedroom of unspecified non-institutional (private) residence as the place of occurrence of the external cause; Z82.3 Family history of stroke; Z88.0 Allergy status to penicillin; Z91.411 Personal history of adult psychological abuse; Z91.81 History of falling
CPT/HCPCS: 0042T; 36556; 70450; 70496; 70498; 70551; 72110; 72125; 72156; 73080; 80048; 80053; 80061; 80306; 82962; 83036; 83735; 84484; 85025; 85027; 85379; 85610; 85652; 85730; 86140; 86618; 92526; 92610; 93005; 93306; 96374; 96375; 97110; 97112; 97116; 97163; 97167; 97530; 97535; 99291; A9575; Q9967

== ENCOUNTER 2025-02-20 07:04 | Outpatient (RCR) | payer OTHER, SELFPAY | END 2025-02-20 23:59 | disposition home or self-care (01) | LOC: ROT 07:04 | PROVIDERS: ATTENDING PHYSICIAN Student in an Organized Health Care Education/Training Program; FAMILY PHYSICIAN Family Medicine | DX: G95.20 Unspecified cord compression (principal); M47.812 Spondylosis without myelopathy or radiculopathy, cervical region; G46.7 Other lacunar syndromes; M54.2 Cervicalgia; Z73.6 Limitation of activities due to disability | CPT/HCPCS: 97010; 97110; 97112; 97140; 97162; 97167; 97530; 97535 ==

== ENCOUNTER 2025-03-01 10:40 | Outpatient (RCR) | payer OTHER, SELFPAY | END 2025-03-21 12:13 | disposition home health service (06) | LOC: ROT 10:40 | PROVIDERS: ATTENDING PHYSICIAN Student in an Organized Health Care Education/Training Program; FAMILY PHYSICIAN Family Medicine | DX: M47.812 Spondylosis without myelopathy or radiculopathy, cervical region (principal); Z73.6 Limitation of activities due to disability; M54.2 Cervicalgia; G46.7 Other lacunar syndromes; G95.20 Unspecified cord compression; R26.89 Other abnormalities of gait and mobility | CPT/HCPCS: 97110; 97530 ==

== ENCOUNTER → 2025-03-13 14:49 | Outpatient (REF) | payer OTHER, SELFPAY | LOC: HWRCS 14:49 | PROVIDERS: ATTENDING PHYSICIAN Family Medicine | DX: M79.89 Other specified soft tissue disorders (principal) | CPT/HCPCS: 93306 ==

== ENCOUNTER → 2025-03-16 13:47 | Outpatient (REF) | payer OTHER, SELFPAY | LOC: EMG 13:47 | PROVIDERS: ATTENDING PHYSICIAN Registered Nurse Critical Care Medicine; FAMILY PHYSICIAN Family Medicine | DX: R53.1 Weakness (principal); R20.0 Anesthesia of skin | CPT/HCPCS: 95886; 95910 ==

== ENCOUNTER → 2025-07-05 09:37 | Outpatient (REF) | payer OTHER, SELFPAY | LOC: WDC 09:37 | PROVIDERS: ATTENDING PHYSICIAN Family Medicine | DX: N63.20 Unspecified lump in the left breast, unspecified quadrant (principal) | CPT/HCPCS: 76642; 77062; 77066 ==